=== PATIENT | male | born 1955 | race Caucasian/White ===

== ENCOUNTER 2023-08-22 04:12 | Inpatient (IN) | payer MEDICARE, SELFPAY ==
[2023-08-22] VITALS (21 sets, daily range): BP systolic 107–193; BP diastolic 58–116; PULSE 78–136; RESP 15–40; TEMP 36.3–38.3; O2SAT 94–97
--- NOTE | ~2023-08-22 | CT_ITS ---
EXAMINATION: CTA chest PE protocol DATE: 08/23/2023 14:49 INDICATION: Respiratory distress TECHNIQUE: Computed tomography angiography (CTA) of the chest was performed with 100 mL Omnipaque-350 intravenous contrast timed to evaluate the pulmonary arteries. Coronal maximum intensity projection 3D-reconstructions were created by the technologist. The dose-length product (DLP) was 1074.49 mGy-cm . Automated exposure control and iterative reconstruction technique were employed. COMPARISON: None. FINDINGS: The pulmonary arteries are well-opacified. No pulmonary embolism is identified. There is mi ld dependent atelectasis of the lungs. No pleural effusion or pneumothorax. Cardiomegaly is noted. Th ere are no pathologically enlarged thoracic lymph nodes. There is severe thoracic spondylosis. There are compression fractures of T9, T11, and L1. There is mild distention of the gallbladder. There is m ild peripancreatic lymphadenopathy, likely reactive. There are bilateral shoulder arthroplasties. IMPRESSION: 1. No pulmonary embolus identified. 2. Mild dependent atelectasis. 3. Cardiomegaly. Reviewed, dictated and finalized at location L. PROGRAM COMPLIANCE SPECIALIST
--- NOTE | ~2023-08-22 | CT_ITS ---
CT of the Abdomen and Pelvis: Indication: Abdominal pain Technique: 2.5 mm axial scans were obtained through the abdomen and pelvis following intravenous adm inistration of 100 cc of Omnipaque 350. Dose reduction technique was used on this scan by utilizing a utomated exposure control and iterative reconstruction technique. The dose-length product (DLP) was 1 339.00 mGy-cm. Findings: Scans through the lung bases are unremarkable. The liver, spleen, pancreas, adrenals and kidneys are within normal limits. Gallbladder is distended but otherwise unremarkable. No evidence of aortic aneurysm. No lymphadenopathy. No bowel obstruction or bowel wall thickening. There is no evidence to suggest acute appendicitis. Images through the pelvis were performed. Urinary bladder unremarkable. Prostate gland and seminal ve sicles are unremarkable. No ascites. There are chronic appearing compression deformities of T8, T9, T 11, and L1, with advanced degenerative spondylosis in the thoracolumbar spine. Impression: Distended gallbladder without other CT abnormality. If there is concern for biliary/gallbladder patho logy, then consider ultrasound for further evaluation. Compression fractures and degenerative spondylitic changes in the thoracal lumbar spine, as detailed above. Reviewed, dictated and finalized at [facility]. E OILER Impression: Distended gallbladder without other CT abnormality. If there is concern for madiha iary/gallbladder pathology, then consider ultrasound for further evaluation. Compression fractures and degenerative spondylitic changes in the thoracal lumb ar spine, as detailed above.
--- NOTE | ~2023-08-22 | XR_ITS ---
EXAMINATION: XR chest 1V portable Exam Date/Time: 08/22/2023 22:40 PREFITTER DOORS HISTORY: rapid response call/SOB Comparison: Same date at 5:00 AM. RESULT: Lines, tubes, and devices: A suture or wire is present over the right axilla, of uncertain etiology but stable. Bilateral partially visualized shoulder arthroplasties. Lungs and pleura: Lordotic positioning. Low volumes with crowding. Motion artifact. Linear atelectas is in the right lower lung. No focal consolidation, effusion, or pneumothorax Cardiomediastinal silhouette: Stable. Other: No acute osseous or upper abdominal finding. IMPRESSION: No acute cardiopulmonary process. Reviewed, dictated and finalized at location K. ITTER DOORS
--- NOTE | ~2023-08-22 | XR_ITS ---
Portable chest x-ray Comparison: 08/22/2023 Clinical History: Decreased lung sounds Findings: Lungs are clear, without focal consolidation or pleural effusion. Cardiomediastinal silho uette is stable. Bilateral shoulder arthroplasties are again present. Impression: Clear lungs. Reviewed, dictated and finalized at location . OND EXPERT Impression: Clear lungs.
--- NOTE | ~2023-08-22 | MR_ITS ---
EXAMINATION: MR MRCP wo con/w 3D wo ind pp DATE: 08/24/2023 12:02 INDICATION: Elevated liver function tests and dilated common bile duct TECHNIQUE: Magnetic resonance imaging (MRI) of the abdomen was performed without intravenous contrast . Sequences included coronal T2-weighted SS-FSE, coronal T2-weighted FS SS-FSE, coronal T2-weighted F S FIESTA, axial T2-weighted FS FIESTA, axial T2-weighted FIESTA, sagittal T2-weighted SS-FSE, axial T 1-weighted dual-echo FSPGR, axial T2-weighted SS-FSE, axial T1-weighted LAVA, axial T2-weighted STIR FSE. Thick-slab T2-weighted FRFSE-XL images were obtained for magnetic resonance cholangiopancreatogr aphy (MRCP). Rotating maximum intensity projection 3-D reconstructions of the volumetric data were cr eated by the technologist. COMPARISON: CT dated 08/23/2023 and 08/22/2023 FINDINGS: ABDOMEN MRI: Cardiomegaly. No pericardial or pleural effusion. Diffuse hepatic steatosis. Percutaneous cholecystos roxie tube via transhepatic approach with distal tip in the fundus of the gallbladder. There are sever al subcentimeter low signal intensity gallstones in the dependent aspect of the gallbladder. Minimal pericholecystic fluid along the gallbladder fossa without [place] gallbladder wall thickening or perich olecystic inflammatory stranding. Spleen, pancreas, bilateral adrenal glands and kidneys are normal. There are few diverticula along the sigmoid colon without adjacent inflammatory stranding to suggest diverticulitis. Bowels are otherwise unremarkable with no obstruction. Bladder is normal. No patholog ically enlarged abdominal or pelvic lymphadenopathy. Mild S-shaped scoliosis of the thoracolumbar spi ne with moderate to severe spondylosis. This includes multilevel disc bulges resulting in central can al stenosis which appears severe at T10-T11 and moderate to severe at T11-T12 and L3-L4. A few chroni c compression fractures in the lower thoracic and upper lumbar spine with normal associated marrow si gnal. T1 hyperintense hemangiomas at T7, T9 and T12. There is approximately 1 cm T1 hypointense, T2 h yperintense lesion in the L1 vertebral body with subtle associated sclerosis and CT ABDOMEN MRCP: MRCP images are suboptimal due to motion. Subsequently better visualization on the sagittal and coron al T2-weighted SSFSE images. These demonstrate interval resolution of prior dilation of the common bi le duct which had measured up to 9 mm, currently measuring 5 mm. There is a 5 mm low signal intensity gallstone at the distalmost common bile duct on series 8, image 13. No intrahepatic third ductal dil ation. No dilation of the main pancreatic duct. IMPRESSION: 1. Cholelithiasis including a 5 mm stone at the distalmost common bile duct. The prior intra-axial he patic biliary ductal dilation has resolved likely due to the interval placement of a percutaneous cho lecystostomy tube which at the fundus of the gallbladder which aside from a minimal amount of pericho lecystic fluid appears normal. 2. Indeterminate 1 cm T1 hypointense T2 hyperintense lesion with subtle associated sclerosis on prior CT at the L1 vertebral body. There is no provided history of known prior malignancy but would consid er correlation with bone scan and PSA levels. 3. Diffuse hepatic steatosis. Reviewed, dictated and finalized at location A. ITIAN IMPRESSION: 1. Cholelithiasis including a 5 mm stone at the distalmost common bile duct. Th e prior intra-axial hepatic biliary ductal dilation has resolved likely due to the interval placement of a percutaneous cholecystostomy tube which at the fund us of the gallbladder which aside from a minimal amount of pericholecystic flui d appears normal. 2. Indeterminate 1 cm T1 hypointense T2 hyperintense lesion with subtle associa gopi sclerosis on prior CT at the L1 jimy
--- NOTE | ~2023-08-22 | XR_ITS ---
Portable chest x-ray Comparison: None Clinical History: Weakness Findings: Possible minimal central congestive change. No consolidation or pleural effusion. Cardiom ediastinal silhouette is prominent, possibly due to AP technique. Bilateral shoulder arthroplasties a re noted. Impression: Possible minimal central congestive change. Reviewed, dictated and finalized at [facility]. CHOPPER Impression: Possible minimal central congestive change.
--- NOTE | ~2023-08-22 | US_ITS ---
EXAMINATION: US right upper quadrant DATE: 08/22/2023 11:40 INDICATION: Right upper quadrant pain TECHNIQUE: Multiple grayscale and Doppler ultrasound images of the abdomen were obtained. COMPARISON: CT from today FINDINGS: Bowel gas obscures visualization of the pancreas. The visualized portions of the pancreas a re unremarkable. The liver is normal with normal echogenicity and echotexture. No surface nodularity. Normal hepatopetal flow in the main portal vein. Stones are present in the gallbladder which is mild ly distended. No gallbladder wall thickening or pericholecystic fluid are identified. The dilated com mon bile duct measures 9 mm. There was no sonographic Hopson sign. IMPRESSION: 1. Cholelithiasis and gallbladder distention without additional findings of cholecystitis. Findings a re equivocal for cholecystitis. Consider nuclear hepatobiliary scan. 2. Dilated common bile duct of unclear etiology. Reviewed, dictated and finalized at location B. RMATICS ANALYST IMPRESSION: 1. Cholelithiasis and gallbladder distention without additional findings of cho lecystitis. Findings are equivocal for cholecystitis. Consider nuclear hepatobi liary scan. 2. Dilated common bile duct of unclear etiology.
--- NOTE | ~2023-08-22 | US_ITS ---
EXAMINATION: US perc cholecystostomy w imag DATE: 08/23/2023 16:47 INDICATION: Acute cholecystitis TECHNIQUE: The procedure including the risks and benefits was discussed with the patient. Risks discu ssed included bleeding including hemorrhage and bile peritonitis. Oral and written consent were obtai pablo. The patient was confirmed to be receiving appropriate antibiotic coverage. The skin overlying t he liver and gallbladder was prepped and draped in usual sterile fashion. Anesthetic was administere d with 1% lidocaine subcutaneously. Conscious sedation was provided by the anesthesiology service. An 8.5 Fr catheter was inserted through liver parenchyma into the gallbladder by trocar technique. Th e metal stiffener and trocar needle were removed, and the pigtail tip was locked. Bile was aspirated and sent for culture. The catheter was stitched to the skin with suture. There were no immediate comp lications. FINDINGS: The gallbladder is dilated with wall thickening and stones and sludge, consistent with acut e cholecystitis. Ultrasound images demonstrate the catheter within the gallbladder. 60 mL dark blacki sh brown bile was aspirated and sent to the lab for Gram stain and cultures. An additional 100 mL madiha e was aspirated into the gravity drainage bag. Images show the formed pigtail catheter tip in the gal lbladder with the gallbladder essentially decompressed on the final image. IMPRESSION: 1. Successful ultrasound-guided cholecystostomy tube placement. 2. 60 mL bile was sent for aerobic, anaerobic, and fungal cultures. 3. The catheter will be managed by Dr. Bernal. A catheter cholangiogram may be performed not less than 48 hours after tube placement if clinically indicated to assess cystic duct patency. If cholecystec roxie is not eventually performed and the infectious episode has resolved, the tube may be removed ove r a guidewire, preferably not less than 3 weeks after placement to allow time for a mature catheter t ract to form to prevent bile leakage and peritonitis. Reviewed, dictated and finalized at location A. OPERATOR IMPRESSION: 1. Successful ultrasound-guided cholecystostomy tube placement. 2. 60 mL bile was sent for aerobic, anaerobic, and fungal cultures. 3. The catheter will be managed by Dr. Bernal. A catheter cholangiogram may be p erformed not less than 48 hours after tube placement if clinically indicated to assess cystic duct patency. If cholecystectomy is not eventually performed an d the infectious episode has resolved, the tube may be removed over a guidewire , preferably not less than 3 weeks after placement to allow time for a mature c atheter tract to form to prevent bile leakage and peritonitis.
[2023-08-22] MEDS: BELLADONNA ALK/PHENOB ELIX 10 ML, MAG HYDROX/ALUMINUM HYD/SIMETH 30 ML, LIDOCAINE HCL 2... PO (04:54)
[2023-08-22] MEDS: FAMOTIDINE 20 MG/2 ML VIAL IV PUSH ×2 (04:54→20:34)
--- NOTE | 2023-08-22 04:55 | ED.ABDPAIN ---
HPI - Abdominal Pain General Chief Complaint: Abdominal Pain Stated Complaint: severe indigestion , epigastric/abd pain Time Seen by Provider: 08/22/23 04:47 History of Present Illness HPI narrative: Pt presents to the ER with his with c/o diffuse abdominal pain. He has had nausea. His said that he ate chili prior to eating getting abdominal pain. He has had these symptoms in the past and states that the tests are normally normal. He has not had an upper endoscopy. Related Data Home Medications Medication Instructions Recorded Confirmed atorvastatin 40 mg tablet 40 mg PO DAILY 08/22/23 08/22/23 fluticasone fur. 200 mcg-umeclid 1 inh inhalation DAILY 08/22/23 08/22/23 62.5 mcg-vilant 25 mcg inhalat.powder (Trelegy Ellipta) gabapentin 600 mg tablet 600 mg PO TID 08/22/23 08/22/23 meloxicam 15 mg tablet 15 mg PO DAILY 08/22/23 08/22/23 morphine 15 mg tablet,extended 15 mg PO QID PRN chronic back pain 08/22/23 08/22/23 release pantoprazole 40 mg tablet,delayed 40 mg PO DAILY 08/22/23 08/22/23 release potassium chloride 10 mEq 10 meq PO TID 08/22/23 08/22/23 tablet,extended release rizatriptan 10 mg tablet 10 mg PO BID PRN Migraine Headache 08/22/23 08/22/23 telmisartan 40 mg tablet 40 mg PO DAILY 08/22/23 08/22/23 Allergies Allergy/AdvReac Type Severity Reaction Status Date / Time codeine Allergy Other Verified 08/22/23 15:25 Latex, Natural Rubber Allergy Rash Verified 08/22/23 15:25 neomycin Allergy Rash Verified 08/22/23 15:25 Review of Systems Review of Systems: Review of systems negative except what is documented in the HPI [facility] Past Medical History Medical History COPD (chronic obstructive pulmonary disease) History of colon cancer S/p partial colectomy with no chemotherapy Hyperlipidemia Hypertension Osteoarthritis Rheumatoid arthritis Scrotal abscess s/p I&D at [facility] June 29, 2023 Surgical History Surgical History History of incision and drainage I&D scrotal abscess 06/29/23 with subsequent wound vac therapy and wound care History of partial colectomy laparoscopic Social History Social History Smoking status: Never smoker Alcohol intake: never Substance use: never Substance use type: does not use Lack of Transportation: No Lack of Food: Never True Current Housing: I Have Housing Concerned About Future Housing: No Difficulty Paying Gas/Electric Bills: No Difficulty Paying for Meds: No Currently Unemployed: No Education: Don't Know Difficulty w/ Childcare or Family Care: No Spiritual care concerns: No Exam Narrative: GENERAL: Well-appearing, well-nourished, uncomfortable HEAD: Normocephalic, atraumatic. EYES: PERRLA and EOMI. ENT: Nares clear, no rhinorrhea or epistaxis. Mucous membranes moist. NECK: Supple. CHEST: Clear to auscultation. No respiratory distress. HEART: Regular rate and rhythm. ABDOMEN: Soft, nontender, nondistended. EXTREMITIES: Normal range of motion. No edema. SKIN: Warm, dry, no rash. NEURO: No focal deficits. Alert and oriented x3. PSYCH: Normal mood and affect. Course Course Emergency Course: DDx includes gastritis, acute francisco, sbo Vital Signs Vital signs: Vital Signs Temperature 97.3 F L 08/22/23 04:19 Pulse Rate 114 H 08/22/23 04:19 Respiratory Rate 26 H 08/22/23 04:19 Blood Pressure 167/85 H 08/22/23 04:19 Pulse Oximetry 95 08/22/23 04:19 Oxygen Delivery Room Air 08/22/23 04:19 Temperature 97.7 F 08/23/23 08:00 Pulse Rate 102 H 08/23/23 10:18 Respiratory Rate 22 H 08/23/23 10:18 Blood Pressure 116/59 L 08/23/23 08:00 Pulse Oximetry 97 08/23/23 08:26 Oxygen Delivery BiPAP 08/23/23 08:26 Oxygen Flow Rate 4 08/22/23 23:00 Fraction of Inspired Oxygen 35 08/23/23 08:
[2023-08-22 05:18] LABS: Basophils Percent Auto 0.4 % (0.2-1.2); Eosinophils Percent Auto 0.3 % (0-4.4); Hematocrit 46.3 % (42.0-52.0); Hemoglobin 15.6 g/dL (14.0-18.0); Immature Granulocyte Absolute 0.03 K/mm3 (0.00-0.031); Immature Granulocyte Percent A 0.4 % (0-0.5); Lymphocytes Absolute Auto 0.45 K/mm3 (0.9-3.2); Lymphocytes Percent Auto 6.6 % (18.3-44.2); Mean Corpuscular HGB Conc 33.7 g/dl (32-36); Mean Corpuscular Hemoglobin 30.6 pg (26-34); Mean Corpuscular Volume 90.8 fl (80-100); Mean Platelet Volume 11.2 fl (7.4-10.4); Monocytes Absolute Auto 0.1 K/mm3 (0.1-0.6); Monocytes Percent Auto 1.3 % (2.6-8.5); Neutrophils Absolute Auto 6.2 K/mm3 (1.3-6.7); Platelet Count Result 138 k/mm3 (150-375); Red Cell Distribution Width 13.2 % (11.5-14.5); White Blood Count 6.9 K/mm3 (4.5-10.0)
[2023-08-22 05:31] LABS: Lactic Acid Reflex 2.5 mmol/L (0.7-2.0)
[2023-08-22] MEDS: diphenhydrAMINE HCl INJ 50 MG/ML VIAL 25 MG IV PUSH (06:24)
[2023-08-22] MEDS: MORPHINE SULFATE (*CRX) 2 MG/ML INJ 4 MG IV PUSH (06:24)
[2023-08-22 06:46] LABS: Alanine Aminotransferase 179 U/L (6-50); Alkaline Phosphatase 125 U/L (38-126); Anion Gap 11 mmol/L (8-16); Aspartate Amino Transferase 378 U/L (17-59); Bilirubin,Total 4.3 mg/dL (0.2-1.3); Blood Urea Nitrogen 18 mg/dL (9-20); Calcium 9.1 mg/dL (8.4-10.2); Carbon Dioxide 23 mmol/L (22-30); Chloride 105 mmol/L (98-107); Estimated CRCL calculation 75 ml/min; Estimated Glomerular Filt Rate > 60; Glucose 127 mg/dL (65-110); Lipase 121 U/L (23-300); Potassium 2.9 mmol/L (3.4-5.0); Sodium 139 mmol/L (137-145)
[2023-08-22 07:01] LABS: Troponin I < 0.012 ng/mL (0.000-0.034)
[2023-08-22] MEDS: PIPERACILLIN/TAZ 4.5G/NS 100ML 4.5 GM/100 ML BAG IVPB (08:07)
[2023-08-22 08:11] LABS: Reflex Lactic Acid Yes or No Add Lactic
[2023-08-22 08:14] LABS: Troponin I < 0.012 ng/mL (0.000-0.034)
[2023-08-22 08:32] LABS: Lactic Acid 2.6 mmol/L (0.7-2.0)
[2023-08-22] MEDS: SODIUM CHLORIDE 0.9% IV 1,000 ML 125 ML IV CONT (09:50)
--- NOTE | 2023-08-22 10:12 | PM.IMHP ---
H&P: HPI History of Present Illness Date/Time: 08/22/23 10:12 Chief Complaint: Abdomen pain Narrative: 67 years old gentleman with hypertension, hyperlipidemia, rheumatoid arthritis on methotrexate, present ED with a chief complaint diffuse abdominal pain. Patient started have abdomen yesterday, associated with nausea denies vomiting. Patient denies chills, denies fever. Patient also denies chest pain, shortness a of breath, dysuria, melena, red blood per rectum. Patient came to ED for evaluation. in the ED, was found have tachycardia tachypnea, elevated liver enzymes, CT abdomen reveals distended gallbladder, there is no concern of biliary or gallbladder pathology. Patient received Zosyn in the ED, ER physician also consulted general surgeon, abdomen ultrasound pending. We admit patient for further evaluation and management Review of Systems Review of Systems: RoS negative except above PMFSH Past Medical History Medical History COPD (chronic obstructive pulmonary disease) History of colon cancer S/p partial colectomy with no chemotherapy Hyperlipidemia Hypertension Osteoarthritis Rheumatoid arthritis Scrotal abscess s/p I&D at [facility] June 29, 2023 Surgical History Surgical History History of incision and drainage I&D scrotal abscess 06/29/23 with subsequent wound vac therapy and wound care History of partial colectomy laparoscopic Social History Social History Smoking status: Former smoker Meds Home Medications and Allergies Home Medications Medication Instructions Recorded Confirmed Type atorvastatin 40 mg tablet mg 08/22/23 History hydrochlorothiazide 25 mg tablet mg 08/22/23 History meloxicam 15 mg tablet mg 08/22/23 History methotrexate sodium 2.5 mg tablet mg 08/22/23 History morphine 15 mg tablet,extended mg PO 08/22/23 History release pantoprazole 40 mg tablet,delayed mg PO 08/22/23 History release potassium chloride 10 mEq meq PO 08/22/23 History tablet,extended release rizatriptan 10 mg tablet mg 08/22/23 History telmisartan 40 mg tablet mg 08/22/23 History Allergies Allergy/AdvReac Type Severity Reaction Status Date / Time codeine Allergy Other Verified 08/22/23 04:48 Latex, Natural Rubber Allergy Rash Verified 08/22/23 04:48 neomycin Allergy Rash Verified 08/22/23 04:48 Vital Signs Vital Signs - 24 hr 08/22/23 04:19 08/22/23 04:29 08/22/23 04:34 Temperature 97.3 F L Pulse Rate 114 H 117 H Respiratory Rate 26 H 26 H 25 H Blood Pressure 167/85 H Pulse Oximetry 95 Oxygen Delivery Room Air 08/22/23 04:46 08/22/23 05:00 08/22/23 05:36 Temperature Pulse Rate 113 H 115 H 114 H Respiratory Rate 22 H 24 H Blood Pressure Pulse Oximetry 97 Oxygen Delivery 08/22/23 06:50 08/22/23 07:10 08/22/23 07:35 Temperature Pulse Rate 108 H 99 107 H Respiratory Rate 22 H 18 Blood Pressure Pulse Oximetry Oxygen Delivery 08/22/23 07:45 08/22/23 08:15 08/22/23 08:43 Temperature Pulse Rate 108 H 109 H 106 H Respiratory Rate 23 H 19 20 Blood Pressure Pulse Oximetry Oxygen Delivery 08/22/23 08:45 08/22/23 09:00 08/22/23 09:40 Temperature Pulse Rate 109 H 118 H 113 H Respiratory Rate 20 15 19 Blood Pressure Pulse Oximetry Oxygen Delivery 08/22/23 09:45 Temperature Pulse Rate 110 H Respiratory Rate 19 Blood Pressure Pulse Oximetry Oxygen Delivery Exam Narrative: GENERAL: Pleasant, in no acute distress. Well-nourished. - EYES: EOMI. Anicteric. - HENT: Moist mucous membranes. - LUNGS: Clear to auscultation bilaterally, no wheezing, rhonchi, or rales. - CARDIOVASCULAR: Regular rate and rhythm. No murmur. No JVD. - ABDOMEN: Soft, right upper quadrant tender of and non-distende
--- NOTE | 2023-08-22 10:45 | PM.CNGS ---
Assessment and Plan Assessment and plan (1) Abnormal findings on diagnostic imaging of gallbladder: Code(s): R93.2 - Abnormal findings on diagnostic imaging of liver and biliary tract Status: Acute Assessment and Plan: CT abdomen and pelvis showed a distended gallbladder. No gallstones. He is complaining of epigastric abdominal pain and is tender in the RUQ and epigastric area. LFTs also elevated, but he also reports a history of such. Recommend to continue IV antibiotics and a RUQ US ordered to further evaluate the gallbladder. If this suggests acute cholecystitis, then we may need to consider percutaneous cholecystostomy tube placement. He has multiple co-morbidites and recent surgery/infection/hospitalization that has made the patient more weak, which all increases his risks for surgery. (2) Sepsis: Code(s): A41.9 - Sepsis, unspecified organism Status: Acute Assessment and Plan: Patient presents with elevated lactic acid, tachycardia, and tachypnea. CT abdomen/pelvis showed distended gallbladder. RUQ US ordered. If suggestive of acute cholecystitis, then may need to consider percutaneous cholecystostomy tube placement as mentioned above. Continue IV antibiotics and IV fluid resuscitation. (3) Elevated liver enzymes: Code(s): R74.8 - Abnormal levels of other serum enzymes Status: Acute Assessment and Plan: Unclear etiology. History of elevated liver enzymes during a hospitalization at [facility] in June. Multiple home medications were stopped at that time, including at least his HCTZ, methotrexate, and possibly a statin. Could also be related to his gallbladder. Will await RUQ US results. Likely not a candidate for MRCP due to previous orthopedic surgery. Repeat labs. (4) Abdominal pain: Qualifiers: Abdominal location: epigastric Qualified Code(s): R10.13 - Epigastric pain Code(s): R10.9 - Unspecified abdominal pain Status: Acute Assessment and Plan: Abdominal pain could be related to the gallbladder. Proceed with further workup as mentioned above. Could also consider GI source if US negative. Troponin neg x 2. (5) COPD (chronic obstructive pulmonary disease): Code(s): J44.9 - Chronic obstructive pulmonary disease, unspecified Status: Chronic (6) Rheumatoid arthritis: Code(s): M06.9 - Rheumatoid arthritis, unspecified Status: Chronic Assessment and Plan: Methotrexate stopped in June. No acute complaints. (7) Hypertension: Code(s): I10 - Essential (primary) hypertension Status: Chronic (8) Obesity, morbid, BMI 40.0-49.9: Code(s): E66.01 - Morbid (severe) obesity due to excess calories Status: Acute Plan I have discussed the patient's case and plan of care with Dr. Bernal. Thank you for allowing us to see the patient in consultation and we will continue to follow along with you. History of Present Illness Consult details Consult date: 08/22/23 Reason for consult: other (CT scan showing distended gallbladder) Requesting physician: Parisa Fiore MD Narrative: This is a 67-year-old obese man with a history of multiple medical problems, who was brought into the ER by his for epigastric abdominal pain. He reports having previous similar pain about 2 months ago that was associated with diarrhea and vomiting. Last night, he ate white chicken chili for dinner and shortly after eating developed what he initially thought was indigestion. He had epigastric pain that progressively worsened through the evening. His pain radiated to his mid chest and mid back. His pain also went across his entire upper abdomen underneath his ribs. He reports associated nausea and vomiting. His pain became more severe and brought him into the ER for further evaluation. Labs showed a white blood cell count of 6900 with a left shift. Labs also significant for lactic acid 2.5, potassium 2.9, total bilirubin 4
--- NOTE | 2023-08-22 10:55 | ECG_ITS ---
Measurements Intervals [place] Rate: 126 P: 38 ND: 176 QRS: 83 QRSD: 94 T: 57 QT: 388 QTc: 562 Interpretive Statements SINUS TACHYCARDIA NONSPECIFIC T-WAVE ABNORMALITY- LAT/HIGH LAT LEADS BASELINE ARTIFACT- II, III, AVL, AVF ABNORMAL ECG NO PREVIOUS ECG AVAILABLE FOR COMPARISON Electronically Signed On 08-23-2023 6:35:49 CAMPUS AIDE by Eusebio Stewart D.O.
--- NOTE | 2023-08-22 12:42 | PC.NURSE ---
Dr. Hatch approached this RN and stated the pt did not want to wait for results of ultrasound and wanted to leave AMA. Since this, the pts has approached the nurses station several times confused on what they are waiting for. The charge lpn went into the pts room and the pts stated Dr. Hatch asked if they wanted to go home and they said yes. Per the pts , this was not them saying they wanted to leave AMA. Per the pts they are waiting for Louisa to give them results from the ultrasound and help guide them on what is going to happen next.
[2023-08-22] MEDS: RIZATRIPTAN BENZOATE 10 MG ODT PO (14:10)
[2023-08-22] MEDS: POTASSIUM CHLORIDE INJ 40 MEQ in SODIUM CHLORIDE 0.9% IV 500 ML 130 MEQ IVPB (15:00)
--- NOTE | 2023-08-22 15:25 | ADMGEN ---
This patient, Nash Jara, was admitted to 3 [facility] Surg Room 312-01. Patient/family oriented to hospital policies and general routines including ID bracelet, bed and alarms, visiting hours, pain management, procedures, bathroom and other care routines, personal items, smoking policy, room service/diet, and visiting hours. Information on how to activate the Rapid Response Team has been discussed. Patient/Family are encouraged to report perceived risks to care and to ask questions if they do not understand what they are told or what they should do.
[2023-08-22] MEDS: PIPERACILLN/TAZ 3.375GM/NS50ML 3.375 GM/50 ML BAG IVPB (17:17)
[2023-08-22 18:48] LABS: Hepatitis B Surface Antigen Negative (Negative)
[2023-08-22 18:54] LABS: HAV RESULT Negative (Negative); Hepatitis B Core IgM Result Negative (Negative)
[2023-08-22 19:05] LABS: Hepatitis C Virus Antibody Negative (Negative)
[2023-08-22] MEDS: HYDROmorphone HCL INJ (*CRX) 1 MG/ML SYR IV PUSH (20:34)
[2023-08-22 22:40] LABS: Alveolar/Arterial O2 Gradient 143.3 mmHg; Fractional Inspired Oxygen 36 %; HCO3 ABG 19.9 mEq/l (22.0-26.0); Oxygen Content ABG 20.9 %vol (16.0-22.0); Oxygen Saturation ABG 97.4 % (95.0-100.0); Oxyhemoglobin 95.8 % THb (90.0-100.0); PCO2 ABG 24.9 mmHg (35.0-45.0); PO2 ABG 84.5 mmHg (80.0-100.0); PO2 FiO2 Ratio Arterial Blood 2.35 %; Total Hemoglobin 15.5 g/dL (12.0-18.0)
[2023-08-22 22:44] LABS: Device NASAL CANNULA; Modified Allen's Test Pass; Site Drawn RIGHT RADIAL; pH ABG 7.521 (7.350-7.450)
[2023-08-22 22:52] LABS: Hematocrit 44.2 % (42.0-52.0); Hemoglobin 14.7 g/dL (14.0-18.0); Immature Platelet Fraction Pct 4.8 % (0.9-11.2); Mean Corpuscular HGB Conc 33.3 g/dl (32-36); Mean Corpuscular Hemoglobin 30.4 pg (26-34); Mean Corpuscular Volume 91.3 fl (80-100); Mean Platelet Volume 10.4 fl (7.4-10.4); Platelet Count Result 113 k/mm3 (150-375); Red Blood Count 4.84 M/mm3 (4.6-6.20); Red Cell Distribution Width 13.6 % (11.5-14.5); White Blood Count 5.3 K/mm3 (4.5-10.0)
[2023-08-22] MEDS: HALOPERIDOL LACTATE 5 MG/ML VIAL IM (22:53)
[2023-08-22 23:05] LABS: Alanine Aminotransferase 219 U/L (6-50); Albumin Level 4.2 g/dL (3.5-5.1); Alkaline Phosphatase 146 U/L (38-126); Anion Gap 14 mmol/L (8-16); Aspartate Amino Transferase 307 U/L (17-59); Bilirubin,Total 6.5 mg/dL (0.2-1.3); Blood Urea Nitrogen 21 mg/dL (9-20); Calcium 9.1 mg/dL (8.4-10.2); Carbon Dioxide 18 mmol/L (22-30); Chloride 106 mmol/L (98-107); Estimated CRCL calculation 75 ml/min; Estimated Glomerular Filt Rate > 60; Glucose 105 mg/dL (65-110); Lactic Acid Reflex 3.1 mmol/L (0.7-2.0); Magnesium 1.8 mg/dL (1.6-2.3); Potassium 3.5 mmol/L (3.4-5.0); Sodium 138 mmol/L (137-145)
--- NOTE | 2023-08-22 23:10 | P.PNCROSS_ITS ---
Event Note Event Note Event Note: Rapid response was called to the patient's room after patient became unresponsi ve at the time of my arrival patient is awake in moderate respiratory distress his nasal cannula is on 5 L patient is tachypneic. Objective: Patient agitated, tachypneic. Subjective: Unable to speaking full sentences, delirious General: Patient is sitting in bed in moderate respiratory distress, tachypneic, ill-appearing. HEENT: Atraumatic normocephalic no JVD no lymphadenopathies PERRLA EOM intact Respiratory: Diminished throughout no crackles no wheezes: Cardiovascular: Tachycardic S1-S2 heard Abdomen: Obese, no hepatosplenomegaly. Extremities: No edema Central nervous system: Patient moving actively and purposely or for limbs face is symmetric Skin: Scrotal wound nearly closed Assessment and plan: 1.Sepsis:Early goal directed therapy ongoing 2:Acute respiratory failure:Started on BiPAP 3:Lactic acidosis: Receiving fluids, repeat as needed. 4:Cholecystitis:On broad spectrum antibiotics.
[2023-08-22 23:15] LABS: Troponin I 0.018 ng/mL (0.000-0.034)
[2023-08-22] MEDS: MORPHINE SULFATE (*CRX) 2 MG/ML INJ 1 MG IV PUSH (23:41)
[2023-08-22] MEDS: LORazepam INJ (*CRX) 2 MG/ML VIAL 1 MG IV PUSH (23:42)
[2023-08-22] MEDS: MORPHINE SULFATE (*CRX) 2 MG/ML INJ IV PUSH (23:56)
[2023-08-23] VITALS (30 sets, daily range): BP systolic 107–190; BP diastolic 59–92; PULSE 100–148; RESP 16–36; TEMP 36.5–39.9; O2SAT 94–99
[2023-08-23] MEDS: PIPERACILLN/TAZ 3.375GM/NS50ML 3.375 GM/50 ML BAG IVPB ×4 (00:05→18:46)
[2023-08-23 00:33] LABS: Glucose Point of Care 109 mg/dl (65-105)
--- NOTE | 2023-08-23 01:13 | PC.NURSE ---
During the night a DEBIT AGENT was call on our patient. A team responded assessed and treated the patients conditions. During the DEBIT AGENT orders were recieved by MD to transfer patient to IMU. Report was given to IMU RN and patients was notified and updated with patients condition changes. Patient was transport to IMU.
[2023-08-23] MEDS: ACETAMINOPHEN 650 MG SUPPOSITORY RECTAL (01:15)
--- NOTE | 2023-08-23 01:34 | PC.NURSE ---
0045 patient arrived to room 200. Oriented to person only. HR 150's , temp 103.8
[2023-08-23 01:47] LABS: Reflex Lactic Acid Yes or No Add Lactic
--- NOTE | 2023-08-23 02:08 | PC.NURSE ---
0100 Dr Palacios updated on status and informed of temp. Orders received. 0115 Remains oriented to self. Attempting to get out of bed repeatedly. Charge nurse informed and patient moved to room 204
[2023-08-23 02:49] LABS: Lactic Acid 4.9 mmol/L (0.7-2.0)
[2023-08-23] MEDS: VANCOMYCIN 1,250 MG/NS 250 ML 1,250 MG/250 ML BAG 166.67 MG IVPB ×2 (03:50→05:30)
[2023-08-23 05:40] LABS: Hematocrit 41.5 % (42.0-52.0); Hemoglobin 13.4 g/dL (14.0-18.0); Mean Corpuscular HGB Conc 32.3 g/dl (32-36); Mean Corpuscular Hemoglobin 30.5 pg (26-34); Mean Corpuscular Volume 94.3 fl (80-100); Mean Platelet Volume 11.2 fl (7.4-10.4); Platelet Count Result 99 k/mm3 (150-375); Red Cell Distribution Width 13.7 % (11.5-14.5); White Blood Count 16.9 K/mm3 (4.5-10.0)
[2023-08-23 06:02] LABS: Alanine Aminotransferase 176 U/L (6-50); Albumin Level 3.4 g/dL (3.5-5.1); Alkaline Phosphatase 125 U/L (38-126); Anion Gap 13 mmol/L (8-16); Aspartate Amino Transferase 227 U/L (17-59); Bilirubin Direct 3.1 mg/dL (0-0.3); Bilirubin,Total 5.9 mg/dL (0.2-1.3); Blood Urea Nitrogen 26 mg/dL (9-20); Calcium 8.4 mg/dL (8.4-10.2); Carbon Dioxide 21 mmol/L (22-30); Chloride 106 mmol/L (98-107); Estimated CRCL calculation 54 ml/min; Estimated Glomerular Filt Rate 51; Glucose 88 mg/dL (65-110); Potassium 2.9 mmol/L (3.4-5.0); Sodium 140 mmol/L (137-145)
[2023-08-23 06:32] LABS: Band Neutrophils Percent 37 % (0-6); Lymphocytes Absolute Manual 0.33 K/mm3 (1.1-4.5); Lymphocytes Percent Manual 2 % (18-44); Monocytes Percent Manual 3 % (3-9); Neutrophils Absolute Manual 16.05 K/mm3 (1.3-6.7); Neutrophils Percent Manual 58 % (46-73); Platelet Estimate Decreased (Adequate); Total Cells Counted 100
[2023-08-23 06:33] LABS: Schistocytes None Seen (NORMAL)
[2023-08-23] MEDS: SODIUM CHLORIDE 0.9% IV 1,000 ML 125 ML IV CONT ×2 (08:06→18:45)
[2023-08-23] MEDS: FAMOTIDINE 20 MG/2 ML VIAL IV PUSH ×2 (08:10→20:28)
[2023-08-23 09:34] LABS: INR 1.5; Prothrombin Time 18.4 Seconds (11.1-14.7)
[2023-08-23 09:35] LABS: Partial Thromboplastin Time 41.2 SECONDS (22.3-36.8)
--- NOTE | 2023-08-23 10:05 | PM.IMPN ---
Progress Note: A&P Assessment and Plan (1) Acute cholecystitis: Code(s): K81.0 - Acute cholecystitis Status: Acute (2) Elevated liver enzymes: Code(s): R74.8 - Abnormal levels of other serum enzymes Status: Acute (3) Sepsis: Code(s): A41.9 - Sepsis, unspecified organism Status: Acute (4) Acute respiratory failure with hypoxemia: Code(s): J96.01 - Acute respiratory failure with hypoxia Status: Acute (5) COPD (chronic obstructive pulmonary disease): Code(s): J44.9 - Chronic obstructive pulmonary disease, unspecified Status: Chronic Plan Acute cholecystitis Patient has sudden-onset abdominal pain, CT reveals distended gallbladder Elevated liver enzymes, no gallstone is identified on CT scan Abnormal ultrasound is pending Optimize pain management Anti emetic p.r.n. Keep patient p.o. Consult general surgeon for evaluation and treatment Sepsis Patient has tachycardia tachypnea, patient is immunocompromised, patient on methotrexate Receive Zosyn in the ED Continue Zosyn IV Four blood culture urinalysis Fluid resuscitation Hypertension Hold oral medication given p.o., start hydralazine IV as needed with parameters Acute respiratory failure Possible due to COPD exacerbation CT of chest rule out PE Start O2 therapy to keep pulse ox above 92 Start DuoNeb scheduled, a paternal better as needed Anxiety Start Xanax p.o. as needed Hold rest home medications during NPO Subjective Date/time seen: 08/23/23 10:05 Interval history: I saw exam patient today, patient has short of breath in the morning, denies chest pain, abdomen pain is better controlled, Exam Narrative: GENERAL: Pleasant, in no acute distress. Well-nourished. - EYES: EOMI. Anicteric. - HENT: Moist mucous membranes. - LUNGS: Clear to auscultation bilaterally, no wheezing, rhonchi, or rales. - CARDIOVASCULAR: Regular rate and rhythm. No murmur. No JVD. - ABDOMEN: Soft, right upper quadrant tender of and non-distended. No palpable masses. - EXTREMITIES: No edema. Peripheral pulses 2+. Non-tender. - NEUROLOGIC: No focal neurological deficits. CN II-XII grossly intact. - PSYCHIATRIC: Awake, Alert and oriented x 3. Appropriate mood and affect. - SKIN: No rashes or lesions. Warm. - LYMPH: No cervical lymphadenopathy. Objective Data Vital Signs Vital Signs: Vital Signs - 24 hr 08/22/23 16:10 08/22/23 17:03 08/22/23 21:46 Temperature 100.5 F H Pulse Rate 78 78 91 Respiratory Rate 19 22 H Blood Pressure 142/116 H Pulse Oximetry 94 94 94 Oxygen Delivery Room Air Room Air Oxygen Flow Rate Fraction of Inspired Oxygen 08/22/23 23:16 08/23/23 00:01 08/23/23 00:56 Temperature 100.9 F H 99.0 F 103.2 F H Pulse Rate 136 H 148 H 140 H Respiratory Rate 40 H 34 H 36 H Blood Pressure 193/73 H 190/90 H 134/70 Pulse Oximetry 95 94 95 Oxygen Delivery Oxygen Flow Rate Fraction of Inspired Oxygen 08/22/23 23:00 08/23/23 01:15 08/23/23 00:00 Temperature 103.8 F H Pulse Rate 130 H 148 H Respiratory Rate 30 H Blood Pressure 107/58 L Pulse Oximetry 96 Oxygen Delivery Nasal Cannula Oxygen Flow Rate 4 Fraction of Inspired Oxygen 08/23/23 00:00 08/23/23 02:00 08/23/23 02:26 Temperature 99.9 F H Pulse Rate 148 H 127 H Respiratory Rate 36 H Blood Pressure Pulse Oximetry 95 Oxygen Delivery BiPAP Oxygen Flow Rate Fraction of Inspired Oxygen 50 08/23/23 03:01 08/23/23 04:00 08/23/23 04:00 Temperature 99.9 F H Pulse Rate 124 H 124 H Respiratory Rate 28 H Blood Pressure Pulse Oximetry 98 Oxygen Delivery BiPAP Oxygen Flow Rate Fraction of Inspired Oxygen 50 08/23/23 04:00 08/23/23 00:01 08/23/23 04:49 Temperature 98.3 F Pulse Rate 122 H 132 H 101 H Respiratory Rate 16 29 H 22 H Blood Pressure 107/72 Pulse Oximetry 99 98 98 Oxygen Delivery BiPAP BiPAP Oxygen Flow Rate
[2023-08-23] MEDS: ALBUTEROL SULFATE NEB 2.5 MG/3 ML INH 1.25 MG INHALATION (10:16)
[2023-08-23] MEDS: IPRATROPIUM BR 0.02% INH SOLN 0.5 MG/2.5 ML VIAL INHALATION ×3 (10:16→20:06)
[2023-08-23 10:50] LABS: Hematocrit 43.4 % (42.0-52.0); Hemoglobin 13.9 g/dL (14.0-18.0); Mean Corpuscular Hemoglobin 30.5 pg (26-34); Mean Corpuscular Volume 95.2 fl (80-100); Mean Platelet Volume 12.5 fl (7.4-10.4); Platelet Count Result 110 k/mm3 (150-375); Red Blood Count 4.56 M/mm3 (4.6-6.20); Red Cell Distribution Width 13.9 % (11.5-14.5); White Blood Count 22.9 K/mm3 (4.5-10.0)
[2023-08-23 11:03] LABS: Alanine Aminotransferase 172 U/L (6-50); Albumin Level 3.5 g/dL (3.5-5.1); Alkaline Phosphatase 110 U/L (38-126); Anion Gap 15 mmol/L (8-16); Aspartate Amino Transferase 212 U/L (17-59); Bilirubin,Total 6.2 mg/dL (0.2-1.3); Blood Urea Nitrogen 26 mg/dL (9-20); Calcium 8.6 mg/dL (8.4-10.2); Carbon Dioxide 21 mmol/L (22-30); Chloride 106 mmol/L (98-107); Estimated CRCL calculation 63 ml/min; Estimated Glomerular Filt Rate > 60; Glucose 112 mg/dL (65-110); Potassium 3.7 mmol/L (3.4-5.0); Sodium 142 mmol/L (137-145)
[2023-08-23] MEDS: POTASSIUM CHLORIDE INJ 40 MEQ in SODIUM CHLORIDE 0.9% IV 500 ML 130 MEQ IVPB (11:30)
[2023-08-23 12:17] LABS: Band Neutrophils Percent 23 % (0-6); Lymphocytes Absolute Manual 1.14 K/mm3 (1.1-4.5); Metamyelocytes Percent 6 %; Monocytes Absolute Manual 0.91 K/mm3 (0.1-0.90); Monocytes Percent Manual 4 % (3-9); Neutrophils Absolute Manual 19.46 K/mm3 (1.3-6.7); Neutrophils Percent Manual 62 % (46-73); Schistocytes None Seen (NORMAL); Total Cells Counted 100
[2023-08-23] MEDS: SODIUM CHLORIDE 0.9% IV 500 ML 999 ML IV CONT (12:25)
[2023-08-23] MEDS: LORazepam INJ (*CRX) 2 MG/ML VIAL 0.5 MG IV PUSH (13:12)
[2023-08-23] MEDS: HEPARIN SODIUM 5,000 UNITS/ML VIAL 5000 UNITS SUB-Q ×2 (13:13→23:12)
--- NOTE | 2023-08-23 13:22 | WPDGICN ---
Assessment and Plan Assessment and plan (1) Elevated liver enzymes: Code(s): R74.8 - Abnormal levels of other serum enzymes Status: Acute Assessment and Plan: Elevated LFTs likely related to cholecystitis. Cannot exclude common bile duct obstruction. Recommend MRCP. Surgery following. Patient may need cholecystectomy. Currently on broad-spectrum antibiotics. continued surgical follow-up advised. Hepatitis serologies will be obtained . will continue follow her LFTs in the interim. (2) Acute cholecystitis: Code(s): K81.0 - Acute cholecystitis Status: Acute Assessment and Plan: CT scan imaging suggest acute cholecystitis. No obvious gallstones on initial imaging. Distended gallbladder noted with changes suspicious for cholecystitis. (3) Obesity, morbid, BMI 40.0-49.9: Code(s): E66.01 - Morbid (severe) obesity due to excess calories Status: Acute (4) COPD (chronic obstructive pulmonary disease): Code(s): J44.9 - Chronic obstructive pulmonary disease, unspecified Status: Chronic GI Consult Note Consult date/time: 08/23/23 13:22 Reason for consult: Elevated LFTs. HPI: Nash Jara is a 67 year old male I am asked to see because of abdominal pain and elevated LFTs. Patient presented to the emergency room last evening with abdominal pain. CT scan revealed distended gallbladder. Common bile duct of 9mm. Patient's white count also noted to be elevated. For this reason I have been consulted. Patient was approached by surgery with attempts to consider CT-guided cholecystostomy tube and MRCP however patient also had a headache and insisted on treatment of his migraine headaches 1st. This morning patient is seen on the request of the surgical service. Patient was sleeping comfortable with CPAP mask. His headache is controlled. He has received pain medications and states his pain is much less intense. Patient denies a fever. Patient denies any exposure to hepatitis. He denies any knowledge of gallbladder disease prior to this. Review of Systems Review of Systems: Review of systems noncontributory. [facility] Past Medical History Medical History COPD (chronic obstructive pulmonary disease) History of colon cancer S/p partial colectomy with no chemotherapy Hyperlipidemia Hypertension Osteoarthritis Rheumatoid arthritis Scrotal abscess s/p I&D at [facility] June 29, 2023 Surgical History Surgical History History of incision and drainage I&D scrotal abscess 06/29/23 with subsequent wound vac therapy and wound care History of partial colectomy laparoscopic Social History Social History Smoking status: Never smoker Alcohol intake: never Substance use: never Substance use type: does not use Lack of Transportation: No Lack of Food: Never True Current Housing: I Have Housing Concerned About Future Housing: No Difficulty Paying Gas/Electric Bills: No Difficulty Paying for Meds: No Currently Unemployed: No Education: Don't Know Difficulty w/ Childcare or Family Care: No Spiritual care concerns: No Meds Home Medications and Allergies Home Medications Medication Instructions Recorded Confirmed Type atorvastatin 40 mg tablet 40 mg PO DAILY 08/22/23 08/22/23 History fluticasone fur. 200 mcg-umeclid 1 inh inhalation DAILY 08/22/23 08/22/23 History 62.5 mcg-vilant 25 mcg inhalat.powder (Trelegy Ellipta) gabapentin 600 mg tablet 600 mg PO TID 08/22/23 08/22/23 History meloxicam 15 mg tablet 15 mg PO DAILY 08/22/23 08/22/23 History morphine 15 mg tablet,extended 15 mg PO QID PRN chronic back pain 08/22/23 08/22/23 History release pantoprazole 40 mg tablet,delayed 40 mg PO DAILY 08/22/23 08/22/23 History release pota
--- NOTE | 2023-08-23 13:50 | PM.PNGS ---
Progress Note: A&P Assessment and Plan (1) Abnormal findings on diagnostic imaging of gallbladder: Code(s): R93.2 - Abnormal findings on diagnostic imaging of liver and biliary tract Status: Acute Assessment and Plan: RUQ US and CT showed a distended gallbladder with gallstones. No other evidence of cholecystitis, no sonographic Hopson's sign. Initially, we had ordered percutaneous cholecystostomy tube placement, which I discussed with the Radiologist today. He feels that it appears he more likely that he has an obstructing common duct stone rather than acute cholecystitis, considering his significant hyperbilirubinemia and the lack of other findings of cholecystitis on imaging. Patient is unable to have the MRCP at this time since he cannot tolerate coming off the BiPAP. The Radiologist recommended holding off on the cholecystostomy tube and ordering a HIDA scan, which I ordered. GI consulted for possible ERCP. We could still proceed with cholecystostomy tube placement if the HIDA scan shows acute cholecystitis. I discussed the case with Dr. Bernal who will discuss further with GI today. (2) Sepsis: Code(s): A41.9 - Sepsis, unspecified organism Status: Acute Assessment and Plan: Secondary to biliary source - ascending cholangitis versus cholecystitis versus combination. See plan above. WBC trending up and lactic acid up to 4.9 early this morning. Continue broad-spectrum IV antibiotics and IV fluids. Blood cx preliminary showing growth of gram negative bacilli. Dr. Bernal will discuss case with GI. (3) Elevated liver enzymes: Code(s): R74.8 - Abnormal levels of other serum enzymes Status: Acute Assessment and Plan: Elevated LFTs with significant hyperbilirubinemia and common bile duct dilatation on ultrasound, concerning for choledocholithiasis. GI consulted. Trend labs. Plan I have discussed the patient's case and plan of care with Dr. Bernal. Subjective Subjective Date/Time Seen: 08/23/23 13:50 Patient reports: pain is less and fever (103.8F tmax last night around 1am) Interval history: Patient seen in IMU. Overnight, he had a rapid response called with patient in respiratory distress. He was on 5 liters oxygen and has since been put on BiPAP. His lactic acid went up to 4.9 and his WBC trending up to 22k today. His LFTs are still elevated with his bilirubin trending up to 6.2 this afternoon and his direct bilirubin elevated at 3.1. He is unable to have the MRCP as he is still requiring BiPAP and did not tolerate coming off for even 20 minutes per nursing. He is unable to tolerate lying flat. GI consulted. He is now seen this afternoon without family at the bedside. He is tired-appearing but comfortable and easy to wake up. He is oriented and answers questions appropriately. He is still having some epigastric abdominal pain, but this has improved since I saw him in the ER yesterday. No nausea. No other specific complaints at this time. Review of Systems Review of Systems: All systems reviewed & are unremarkable except as noted in HPI and below Exam Const: General: ill appearing and tired appearing Nutritional Appearance: obese Cardio: Rate: tachycardic Rhythm: regular rhythm GI: Inspection: non-distended and obesity GI Palp: Yes Soft to palpation, Yes Tenderness to palpation present (GI) (epigastric and RUQ), Yes Guarding due to palpation present (GI) (RUQ) and No Rebound tenderness present Auscultation: normal bowel sounds Extrem: General: no edema Psych: Mental Status: mental status grossly normal Insight: Good insight present (Psych) Objective Data Vital Signs Vital Signs: Vital Signs - 24 hr 08/22/23 16:10 08/22/23 17:03 08/22/23 21:46 Temperature 100.5 F H Pulse Rate 78 78 91 Respiratory Rate 19 22 H Blood Pressure 142/116 H Pulse Oximetry 94 94 94 Oxygen Delivery Room Air Room Air Oxygen Flow Rate Fraction of Inspired Oxygen 08/22/23 23:16 1
[2023-08-23] MEDS: ALBUTEROL SULFATE NEB 2.5 MG/3 ML INH INHALATION ×2 (13:52→20:06)
--- NOTE | 2023-08-23 15:06 | PC.NURSE ---
Pt reports feeling like he has to push his urine out. Hudson irrigated. Pt winces with irrigation. Bladder scan shows 30 ml. Urine light brown and concentrated. Denies any history of bladder or urine issues. Scrotum swollen. Pt had wound vac removed approximately [address] Hatch made aware. New orders noted for UA.
[2023-08-23] MEDS: ALPRAZolam (*CRX) 0.5 MG TABLET PO (15:28)
--- NOTE | 2023-08-23 17:07 | WPDGIPROGNO ---
Progress Note: A&P Assessment and Plan (1) Acute cholecystitis: Code(s): K81.0 - Acute cholecystitis Status: Acute Assessment and Plan: Patient with acute cholecystitis and gallstones evident on imaging. Common bile duct may be obstructed with elevated bilirubin. Now status to gallbladder drainage tube. White count remains very high 22,000 today. Cannot exclude common bile duct gallstone obstruction. I discussed this with surgery. Patient remains at high risk for surgery but also for an ERCP. He may benefit from transfer to a tertiary care center for this procedure. Continue antibiotic supportive care for now. (2) Elevated liver enzymes: Code(s): R74.8 - Abnormal levels of other serum enzymes Status: Acute Assessment and Plan: Elevated transaminases and bilirubin. Concern over cholecystitis but also possible cholangitis. MRCP would be helpful but cannot be off BiPAP long enough to have this procedure done. Will continue supportive care and follow for now. (3) Obesity, morbid, BMI 40.0-49.9: Code(s): E66.01 - Morbid (severe) obesity due to excess calories Status: Acute (4) Acute respiratory failure with hypoxemia: Code(s): J96.01 - Acute respiratory failure with hypoxia Status: Acute Assessment and Plan: Patient remains on BiPAP. Does not do well without it. Subjective Date/time seen: 08/23/23 17:07 Interval history: Follow-up visit this afternoon. Patient remains on BiPAP mask. She is currently sedated. Had external cholecystotomy tube placed this afternoon. Not very responsive likely sedated for procedure. Review of Systems Review of Systems: Review of systems noncontributory. Exam Narrative: On physical exam patient is remains on BiPAP mask. Lungs reveal a few rhonchi. Abdomen is soft no evidence for tenderness. Gallbladder drain in place with dark bile draining. Objective Data Vital Signs Vital Signs: Vital Signs - 24 hr 08/22/23 21:46 08/22/23 23:16 08/23/23 00:01 Temperature 100.5 F H 100.9 F H 99.0 F Pulse Rate 91 136 H 148 H Respiratory Rate 22 H 40 H 34 H Blood Pressure 142/116 H 193/73 H 190/90 H Pulse Oximetry 94 95 94 Oxygen Delivery Oxygen Flow Rate Fraction of Inspired Oxygen 08/23/23 00:56 08/22/23 23:00 08/23/23 01:15 Temperature 103.2 F H 103.8 F H Pulse Rate 140 H 130 H Respiratory Rate 36 H 30 H Blood Pressure 134/70 107/58 L Pulse Oximetry 95 96 Oxygen Delivery Nasal Cannula Oxygen Flow Rate 4 Fraction of Inspired Oxygen 08/23/23 00:00 08/23/23 00:00 08/23/23 02:00 Temperature Pulse Rate 148 H 148 H 127 H Respiratory Rate 36 H Blood Pressure Pulse Oximetry 95 Oxygen Delivery BiPAP Oxygen Flow Rate Fraction of Inspired Oxygen 50 08/23/23 02:26 08/23/23 03:01 08/23/23 04:00 Temperature 99.9 F H 99.9 F H Pulse Rate 124 H Respiratory Rate Blood Pressure Pulse Oximetry Oxygen Delivery Oxygen Flow Rate Fraction of Inspired Oxygen 08/23/23 04:00 08/23/23 04:00 08/23/23 00:01 Temperature 98.3 F Pulse Rate 124 H 122 H 132 H Respiratory Rate 28 H 16 29 H Blood Pressure 107/72 Pulse Oximetry 98 99 98 Oxygen Delivery BiPAP BiPAP Oxygen Flow Rate Fraction of Inspired Oxygen 50 08/23/23 04:49 08/23/23 06:00 08/23/23 08:24 Temperature Pulse Rate 101 H 110 H 112 H Respiratory Rate 22 H 23 H Blood Pressure Pulse Oximetry 98 99 Oxygen Delivery BiPAP BiPAP Oxygen Flow Rate Fraction of Inspired Oxygen 08/23/23 08:20 08/23/23 08:26 08/23/23 08:00 Temperature 97.7 F Pulse Rate 121 H Respiratory Rate 30 H Blood Pressure 116/59 L Pulse Oximetry 99 97 99 Oxygen Delivery BiPAP BiPAP Oxygen Flow Rate Fraction of Inspired Oxygen 50 35 08/23/23 10:18 08/23/23 12:00 08/23/23 11:20 Temperature 98.4 F Pulse Rate 102 H 102 H 106 H Respiratory Rate 22 H 27 H 26 H
[2023-08-23 17:22] LABS: Appearance Urine Cloudy (Clear); Bacteria Urine None Seen /hpf; Bilirubin Urine 2+ (Negative); Blood Urine 3+ (Negative); Color Urine Dark Yellow (Yellow); Glucose Urine UA Negative (Negative); Ketones Urine Negative (Negative); Leukocyte Esterase Ur Trace LEU/UL (NEGATIVE); Need Manual Microscopic Reviewed; Nitrate Urine Negative (Negative); Non Pathogenic Casts 0-2; Protein Urine 2+ mg/dL (Negative); RBC Urine >100 /hpf (0-2); Squamous Epithelial Cell Urine Occasional /hpf (Few); WBC Urine 0-5 /hpf (0-3)
[2023-08-23 17:23] LABS: Add Urine Microscopic? YES; Specific Grav Ur 1.067 (1.001-1.035)
[2023-08-23] MEDS: RIZATRIPTAN BENZOATE 10 MG ODT PO ×2 (18:47→20:57)
[2023-08-23] MEDS: HYDROmorphone HCL INJ (*CRX) 1 MG/ML SYR IV PUSH (18:47)
[2023-08-23] MEDS: HYDROmorphone HCL INJ (*CRX) 1 MG/ML SYR 0.5 MG IV PUSH (23:09)
[2023-08-24] VITALS (24 sets, daily range): BP systolic 146–181; BP diastolic 87–108; PULSE 86–130; RESP 18–28; TEMP 36–36.8; O2SAT 95–99
[2023-08-24] MEDS: PIPERACILLN/TAZ 3.375GM/NS50ML 3.375 GM/50 ML BAG IVPB ×5 (00:07→23:15)
[2023-08-24] MEDS: ALBUTEROL SULFATE NEB 2.5 MG/3 ML INH INHALATION ×4 (00:41→20:58)
[2023-08-24] MEDS: IPRATROPIUM BR 0.02% INH SOLN 0.5 MG/2.5 ML VIAL INHALATION ×4 (00:41→20:58)
[2023-08-24 04:53] LABS: Hematocrit 40.2 % (42.0-52.0); Hemoglobin 12.9 g/dL (14.0-18.0); Immature Platelet Fraction Pct 8.1 % (0.9-11.2); Mean Corpuscular HGB Conc 32.1 g/dl (32-36); Mean Corpuscular Hemoglobin 30.6 pg (26-34); Mean Corpuscular Volume 95.3 fl (80-100); Mean Platelet Volume 12.3 fl (7.4-10.4); Platelet Count Result 94 k/mm3 (150-375); Red Blood Count 4.22 M/mm3 (4.6-6.20); Red Cell Distribution Width 14.1 % (11.5-14.5); White Blood Count 14.6 K/mm3 (4.5-10.0)
[2023-08-24 05:00] LABS: Lactic Acid Reflex 1.8 mmol/L (0.7-2.0)
[2023-08-24 05:04] LABS: Alanine Aminotransferase 150 U/L (6-50); Albumin Level 3.4 g/dL (3.5-5.1); Alkaline Phosphatase 87 U/L (38-126); Anion Gap 9 mmol/L (8-16); Aspartate Amino Transferase 146 U/L (17-59); Bilirubin,Total 5.1 mg/dL (0.2-1.3); Blood Urea Nitrogen 23 mg/dL (9-20); Calcium 8.5 mg/dL (8.4-10.2); Carbon Dioxide 22 mmol/L (22-30); Chloride 109 mmol/L (98-107); Estimated CRCL calculation 75 ml/min; Estimated Glomerular Filt Rate > 60; Glucose 99 mg/dL (65-110); Lipase 58 U/L (23-300); Potassium 3.6 mmol/L (3.4-5.0); Sodium 140 mmol/L (137-145)
[2023-08-24] MEDS: HEPARIN SODIUM 5,000 UNITS/ML VIAL 5000 UNITS SUB-Q ×3 (05:16→21:42)
[2023-08-24 06:35] LABS: Band Neutrophils Percent 17 % (0-6); Lymphocytes Absolute Manual 0.87 K/mm3 (1.1-4.5); Lymphocytes Percent Manual 6 % (18-44); Monocytes Absolute Manual 0.73 K/mm3 (0.1-0.90); Monocytes Percent Manual 5 % (3-9); Neutrophils Absolute Manual 12.84 K/mm3 (1.3-6.7); Neutrophils Percent Manual 71 % (46-73); Total Cells Counted 100
[2023-08-24 06:36] LABS: Eosinophils Absolute Manual 0.14 K/mm3 (0.02-0.5); Eosinophils Percent Manual 1 % (0-4)
[2023-08-24 06:37] LABS: Large Platelets Present; Poikilocytosis 1+ (NORMAL); Tear Drop Cells 1+ (NORMAL)
[2023-08-24 06:38] LABS: Burr Cells 2+ (NORMAL); Schistocytes None Seen (NORMAL)
--- NOTE | 2023-08-24 09:42 | PM.IMPN ---
Progress Note: A&P Assessment and Plan (1) Acute cholecystitis: Code(s): K81.0 - Acute cholecystitis Status: Acute (2) Elevated liver enzymes: Code(s): R74.8 - Abnormal levels of other serum enzymes Status: Acute (3) Sepsis: Code(s): A41.9 - Sepsis, unspecified organism Status: Acute (4) Acute respiratory failure with hypoxemia: Code(s): J96.01 - Acute respiratory failure with hypoxia Status: Acute (5) COPD (chronic obstructive pulmonary disease): Code(s): J44.9 - Chronic obstructive pulmonary disease, unspecified Status: Chronic Plan Patient has sudden-onset abdominal pain CT reveals distended gallbladder Elevated liver enzymes, no gallstone is identified on CT scan RUQ US and CT showed a distended gallbladder with gallstones. No other evidence of cholecystitis ?acute cholecystitis and gallstones evident on imaging.? Common bile duct may be obstructed with elevated bilirubin.? Now status to gallbladder drainage tube.? Optimize pain management Anti emetic p.r.n. Keep patient p.o. Consult general surgeon and GI for evaluation and treatment Sepsis Patient has tachycardia tachypnea, patient is immunocompromised, patient on methotrexate Receive Zosyn in the ED Continue Zosyn IV Four blood culture urinalysis Fluid resuscitation Hypertension Continue home oral medication given p.o., start hydralazine IV as needed with parameters Acute respiratory failure Possible due to COPD exacerbation and obesity hypoventilation syndrome CT of chest rule out PE Start O2 therapy to keep pulse ox above 92 Start DuoNeb scheduled albuterol nebulizer as needed Consult zoology technical officer for evaluation treatment Dysuria Hudson catheter placed Consult urologist for evaluation treatment Anxiety Start Xanax p.o. as needed Subjective Date/time seen: 08/24/23 09:42 Interval history: Patient feels better regarding the pain, denies nausea vomiting. Patient has a trouble with urination, Hudson catheter was placed and removed today. Patient was afebrile, blood pressure stable Exam Narrative: GENERAL: Pleasant, in no acute distress. Well-nourished. - EYES: EOMI. Anicteric. - HENT: Moist mucous membranes. - LUNGS: Clear to auscultation bilaterally, no wheezing, rhonchi, or rales. - CARDIOVASCULAR: Regular rate and rhythm. No murmur. No JVD. - ABDOMEN: Soft, right upper quadrant tender of and non-distended. No palpable masses. - EXTREMITIES: No edema. Peripheral pulses 2+. Non-tender. - NEUROLOGIC: No focal neurological deficits. CN II-XII grossly intact. - PSYCHIATRIC: Awake, Alert and oriented x 3. Appropriate mood and affect. - SKIN: No rashes or lesions. Warm. - LYMPH: No cervical lymphadenopathy. Objective Data Vital Signs Vital Signs: Vital Signs - 24 hr 08/23/23 10:18 08/23/23 12:00 08/23/23 11:20 Temperature 98.4 F Pulse Rate 102 H 102 H 106 H Respiratory Rate 22 H 27 H 26 H Blood Pressure 136/91 H Pulse Oximetry 98 97 Oxygen Delivery BiPAP Oxygen Flow Rate Fraction of Inspired Oxygen 08/23/23 13:53 08/23/23 13:54 08/23/23 15:07 Temperature Pulse Rate 103 H 104 H 104 H Respiratory Rate 25 H 25 H 28 H Blood Pressure Pulse Oximetry 96 96 Oxygen Delivery BiPAP BiPAP Oxygen Flow Rate Fraction of Inspired Oxygen 08/23/23 10:00 08/23/23 12:00 08/23/23 14:00 Temperature Pulse Rate 106 H 104 H 107 H Respiratory Rate Blood Pressure Pulse Oximetry Oxygen Delivery Oxygen Flow Rate Fraction of Inspired Oxygen 08/23/23 16:00 08/23/23 18:00 08/23/23 12:00 Temperature Pulse Rate 104 H 118 H Respiratory Rate Blood Pressure Pulse Oximetry 98 Oxygen Delivery BiPAP Oxygen Flow Rate Fraction of Inspired Oxygen 35 08/23/23 16:00 08/23/23 16:00 08/23/23 19:33 Temperature 98.4 F 98.5 F Pulse Rate 102 H 112 H Respiratory Rate 27 H 18 Blood Pr
[2023-08-24] MEDS: LABETALOL HCL INJ 100 MG/20 ML VIAL 10 MG IV PUSH (10:30)
[2023-08-24] MEDS: TELMISARTAN 40 MG TABLET PO (10:30)
[2023-08-24] MEDS: FAMOTIDINE 20 MG/2 ML VIAL IV PUSH ×2 (10:30→22:36)
[2023-08-24] MEDS: ALPRAZolam (*CRX) 0.5 MG TABLET PO ×2 (10:42→18:13)
--- NOTE | 2023-08-24 10:54 | PM.CNPUL ---
Assessment and Plan Assessment and plan (1) Acute respiratory failure with hypoxemia: Code(s): J96.01 - Acute respiratory failure with hypoxia Status: Acute Assessment and Plan: He is requiring O2 at 4 L a minute, saturation 98%. He has a respiratory alkalosis secondary to sepsis. Does not appear to have aspiration pneumonia or community acquired pneumonia,no infiltrates on CXR or CTA. O2 can be weaned as he improves. (2) COPD (chronic obstructive pulmonary disease): Qualifiers: COPD type: unspecified COPD Qualified Code(s): J44.9 - Chronic obstructive pulmonary disease, unspecified Code(s): J44.9 - Chronic obstructive pulmonary disease, unspecified Status: Chronic Assessment and Plan: Long standing, uses Trelegy once a day and prn albuterol a few time a week, does not get COPD exacerbations. Change treatment here to budesonide in nebulizer, stop ipratropium with thick secretions and urinary retention (3) Atelectasis: Code(s): J98.11 - Atelectasis Status: Acute Assessment and Plan: seen on chest CTA, not much; should improve with Cornet valve and bronchodilators Plan Add Cornet valve to help him clear airway secretions, improve atelectasis Continue bronchodilator; he is not able to use inhaler due to decreased mentation, Will continue nebulized albuterol; stop ipratropium because he has problems expectorating and he had urinary retention on admission. Ipratropium is anticholinergic, worsens urine retention. Start nebulized budesonide for COPD. Check urine antigen for pneumococcus and Legionella. He needs to have more respiratory stability before any additional procedures, ERCP. He is a big lima, may end up intubated. History of Present Illness History of Present Illness Consult date: 08/24/23 Requesting physician: Mirlande Hatch MD Chief complaint: COPD, acute respiratory failure Narrative: patient seen August 24 at 20:42 NEW: Nash Jara is a 67-year-old man with COPD, RA; admitted with abdominal pain, had MRCP today for acute cholecystitis with sepsis, has a drain in place, needs to have ERCP. His Zelda and daughter Yasmine are at the bedside, provide history. Patient is confused and not able to give a history. He uses Trelegy at home, and albuterol a few times a week. He does not get frequent respiratory infections, maybe once a year. He has not had a recent exacerbation of COPD, and has never been on a ventilator. Today, he started to cough with thick secretions, white. ABG on 08/22/2023 shows pH 7.521, pCO2 24.9, PO2 84, HC03 19.9 saturation 97.4% on 4 L. this is consistent with sepsis. He does have an increased A-a gradient. His blood cultures Aug 22 - Klebsiella; WBC was 16.9 then 24k, today lower 14.9 K He is on pip-tazo IV; vancomycin was stopped. He had 07/09/23 a hydrocelectomy, later fell, had to have a wound vac until last Tuesday 3. He was getting more active, was going out to eat with family. His general activity level is limited by back pain, not shortness of breath, however he tries to stay active. He has not had increased shortness of breath or coughing until he developed the abdominal pain with cholecystitis and sepsis. DATA * 08/23/23 CTA- IMPRESSION: 1. No pulmonary embolus identified. 2. Mild dependent atelectasis. 3. Cardiomegaly. * 08/23 : CXR Clear lungs. Review of Systems Review of Systems: no leg swelling no chest pain All systems reviewed & are unremarkable except as noted in HPI and below PMFSH Past Medical History Medical History COPD (chronic obstructive pulmonary disease) History of colon cancer S/p partial colectomy with no chemotherapy Hyperl
[2023-08-24] MEDS: RIZATRIPTAN BENZOATE 10 MG ODT PO ×2 (12:17→21:42)
--- NOTE | 2023-08-24 13:11 | WPDURCON ---
Assessment and Plan Assessment and plan (1) BPH (benign prostatic hyperplasia): Code(s): N40.0 - Benign prostatic hyperplasia without lower urinary tract symptoms Status: Acute Assessment and Plan: Start Tamsulosin and Finasteride. Pt. wanted his verdin removed, I agreed to remove it and try a voiding trial since his PVR was 350cc on insertion. However, I didn't guarantee he wouldn't have incomplete emptying since meds hadn't been started. Will bladder scan after first void to determine if he can remain without a verdin. (2) Retention of urine: Code(s): R33.9 - Retention of urine, unspecified Status: Acute Urology Consult Note HPI Date Seen: 08/24/23 Time Seen: 10:00 Requesting Physician: Mirlande Hatch MD Primary Care Provider: Sarabjit Whitman, Consult Narrative Reason for consult: Retention/Scrotal Wound/Hydrocele Narrative: Nash Jara is a 67 year old male who presented to the ER on 08/22/23 with diffuse abdominal pain and nausea and was found to have acute cholecystitis. He had a verdin catheter placed as well for acute retention with 350cc upon insertion. He states he hasn't been on any medications for BPH in the past but does struggle with nocturia, frequency, urgency and a slow stream at home. He see's a urologist at [facility] who did a hydrocelectomy on him recently, but he fell and his incision dehisced causing him to have infection and debridement with a wound vac placed. The wound vac was removed recently, but he has a small area that is still not healed, however it is not bothersome to him. He is very bothered by his catheter and is having spasms and pain despite the urine being clear and draining to gravity. He is on Zosyn, WBC is 14.6, creatinine is 1.00, urinalysis isn't suggestive of a UTI, but no cutlure was sent. He is afebrile. Review of Systems Cardiovascular: Cardiovascular: Denies chest pain Respiratory: Respiratory: Reports no additional respiratory complaints Gastrointestinal: Gastrointestinal: Reports abdominal pain, Reports nausea and Denies vomiting Genitourinary: Genitourinary: Denies hematuria, Reports oliguria, Denies flank pain, Reports nocturia, Reports urinary frequency, Reports urinary hesitancy and Reports urinary urgency [facility] Past Medical History Medical History COPD (chronic obstructive pulmonary disease) History of colon cancer S/p partial colectomy with no chemotherapy Hyperlipidemia Hypertension Osteoarthritis Rheumatoid arthritis Scrotal abscess s/p I&D at [facility] June 29, 2023 Surgical History Surgical History History of incision and drainage I&D scrotal abscess 06/29/23 with subsequent wound vac therapy and wound care History of partial colectomy laparoscopic Social History Social History Smoking status: Never smoker Alcohol intake: never Substance use: never Substance use type: does not use Lack of Transportation: No Lack of Food: Never True Current Housing: I Have Housing Concerned About Future Housing: No Difficulty Paying Gas/Electric Bills: No Difficulty Paying for Meds: No Currently Unemployed: No Education: Don't Know Difficulty w/ Childcare or Family Care: No Spiritual care concerns: No Meds Home Medications and Allergies Home Medications Medication Instructions Recorded Confirmed Type atorvastatin 40 mg tablet 40 mg PO DAILY 08/22/23 08/22/23 History fluticasone fur. 200 mcg-umeclid 1 inh inhalation DAILY 08/22/23 08/22/23 History 62.5 mcg-vilant 25 mcg inhalat.powder (Trelegy Ellipta) gabapentin 600 mg tablet 600 mg PO TID 08/22/23 08/22/23 History meloxicam 15 mg tablet 15 mg PO DAILY 08/22/23 08/22/23 History morphine 15 mg tablet,extended 15 mg PO QID PRN chronic back pain
--- NOTE | 2023-08-24 13:49 | PM.PNGS ---
Progress Note: A&P Assessment and Plan (1) Sepsis: Code(s): A41.9 - Sepsis, unspecified organism Status: Acute Assessment and Plan: Biliary source, likely cholangitis vs less likely cholecystitis. S/p cholecystostomy tube placement, bile cx pending. WBC count trending down and lactic acid normalized. LFTs down today. Preliminary blood cx growing Klebsiella pneumoniae. Continue broad-spectrum IV antibiotics and IV fluids. (2) Cholelithiasis with choledocholithiasis: Code(s): K80.70 - Calculus of gallbladder and bile duct without cholecystitis without obstruction Status: Acute Assessment and Plan: MRCP showed gallstones in the dependent aspect of the gallbladder with minimal pericholecystic fluid but no wall thickening or pericholecystic inflammatory stranding. Also showed a 5 mm distal common duct stone. He is improving s/p gallbladder decompression with cholecystostomy tube placement yesterday. GI following for possible ERCP. Plan would be to have the cholecystostomy tube in place for a few weeks before eventually following up with the patient regarding interval cholecystectomy as an outpatient once medically optimized. (3) Cholangitis: Code(s): K83.09 - Other cholangitis Status: Acute Assessment and Plan: Continue IV antibiotics. (4) Elevated liver enzymes: Code(s): R74.8 - Abnormal levels of other serum enzymes Status: Acute Assessment and Plan: Improved some today following gallbladder decompression. Total bilirubin still 5.1. MRCP showed 5 mm distal common bile duct stone. GI following for possible ERCP. Plan I have discussed the patient's case and plan of care with Dr. Bernal. Subjective Subjective Date/Time Seen: 08/24/23 13:49 Patient reports: no new complaints, feels better, pain is less and afebrile (since 08/23 around 3:00 am) Interval history: Patient seen today in IMU. Overall he is feeling better than yesterday. He is more alert. He is currently off BiPAP on high flow nasal cannula. He still has some mild right-sided abdominal pain, but improved. No nausea. He is thirsty. Perc cholecystostomy tube placed yesterday. No other complaints at this time. Exam Const: General: comfortable and ill appearing Orientation/consciousness: patient oriented x3 GI: Inspection: obesity and other (RUQ cholecystostomy tube with bilious drainage) GI Palp: Yes Soft to palpation, Yes Tenderness to palpation present (GI) (RUQ and RLQ), No Guarding due to palpation present (GI) and No Rebound tenderness present Auscultation: normal bowel sounds Objective Data Vital Signs Vital Signs: Vital Signs - 24 hr 08/23/23 13:53 08/23/23 13:54 08/23/23 15:07 Temperature Pulse Rate 103 H 104 H 104 H Respiratory Rate 25 H 25 H 28 H Blood Pressure Pulse Oximetry 96 96 Oxygen Delivery BiPAP BiPAP Oxygen Flow Rate Fraction of Inspired Oxygen 08/23/23 14:00 08/23/23 16:00 08/23/23 18:00 Temperature Pulse Rate 107 H 104 H 118 H Respiratory Rate Blood Pressure Pulse Oximetry Oxygen Delivery Oxygen Flow Rate Fraction of Inspired Oxygen 08/23/23 16:00 08/23/23 16:00 08/23/23 19:33 Temperature 98.4 F 98.5 F Pulse Rate 102 H 112 H Respiratory Rate 27 H 18 Blood Pressure 136/91 H 150/92 H Pulse Oximetry 98 98 96 Oxygen Delivery BiPAP Oxygen Flow Rate Fraction of Inspired Oxygen 35 08/23/23 20:07 08/23/23 20:00 08/23/23 20:00 Temperature Pulse Rate 110 H Respiratory Rate 21 H Blood Pressure Pulse Oximetry 98 96 Oxygen Delivery Nasal Cannula Nasal Cannula Oxygen Flow Rate 2 2 Fraction of Inspired Oxygen 08/23/23 22:14 08/23/23 20:00 08/23/23 22:00 Temperature Pulse Rate 103 H 112 H 100 Respiratory Rate 25 H Blood Pressure Pulse Oximetry 97 Oxygen Delivery BiPAP Oxygen Flow Rate Fraction of Inspired Oxygen 08/24/23 00:00 08/24/23 00:00 08/23/23 20:15 T
--- NOTE | 2023-08-24 14:46 | WPDGIPROGNO ---
Progress Note: A&P Assessment and Plan (1) Cholelithiasis with choledocholithiasis: Code(s): K80.70 - Calculus of gallbladder and bile duct without cholecystitis without obstruction Status: Acute Assessment and Plan: MRCP able to be accomplished today shows the patient does have gallstones with common bile duct gallstone measuring 5mm. I discussed with the patient that we need to proceed with the ERCP when his respiratory status is stable. Patient voices his intention to leave the hospital in return when he is breathing better and stronger. Currently his WBC count has diminished currently 14.6 this morning. I will keep him NPO for possible ERCP tomorrow but patient at this point somewhat unwilling to pursue invasive testing. Apparently he is somewhat frustrated with the nighttime staff on the floor. ERCP will be considered when his respiratory status is stabilized. (2) Cholangitis: Code(s): K83.09 - Other cholangitis Status: Acute Assessment and Plan: Patient with apparent cholangitis on presentation. Appears to be improving after gallbladder drainage tube placed. Will continue broad-spectrum antibiotics at this time. Anticipate ERCP prior to all to make cholecystectomy. (3) Obesity, morbid, BMI 40.0-49.9: Code(s): E66.01 - Morbid (severe) obesity due to excess calories Status: Acute (4) COPD (chronic obstructive pulmonary disease): Code(s): J44.9 - Chronic obstructive pulmonary disease, unspecified Status: Chronic Assessment and Plan: Patient with tenuous respiratory status. Somewhat improved today. He is no longer on continuous BiPAP mask. Subjective Date/time seen: 08/24/23 14:46 Interval history: Patient feeling much better today. Sitting upright in bed. No longer continuous use of BiPAP mask. Denies significant abdominal pain. Apparently became very frustrated last evening. He remains afebrile. Review of Systems Review of Systems: Review of systems noncontributory. Exam Narrative: Physical exam reveals patient be alert. He is afebrile. HEENT exam reveals some scleral icterus. Heart without murmur. Abdomen is obese. Bowel sounds are present soft no localized tenderness. Gallbladder drainage tube in place with dark bile recovered. Objective Data Vital Signs Vital Signs: Vital Signs - 24 hr 08/23/23 15:07 08/23/23 16:00 08/23/23 18:00 Temperature Pulse Rate 104 H 104 H 118 H Respiratory Rate 28 H Blood Pressure Pulse Oximetry 96 Oxygen Delivery BiPAP Oxygen Flow Rate Fraction of Inspired Oxygen 08/23/23 16:00 08/23/23 16:00 08/23/23 19:33 Temperature 98.4 F 98.5 F Pulse Rate 102 H 112 H Respiratory Rate 27 H 18 Blood Pressure 136/91 H 150/92 H Pulse Oximetry 98 98 96 Oxygen Delivery BiPAP Oxygen Flow Rate Fraction of Inspired Oxygen 35 08/23/23 20:07 08/23/23 20:00 08/23/23 20:00 Temperature Pulse Rate 110 H Respiratory Rate 21 H Blood Pressure Pulse Oximetry 98 96 Oxygen Delivery Nasal Cannula Nasal Cannula Oxygen Flow Rate 2 2 Fraction of Inspired Oxygen 08/23/23 22:14 08/23/23 20:00 08/23/23 22:00 Temperature Pulse Rate 103 H 112 H 100 Respiratory Rate 25 H Blood Pressure Pulse Oximetry 97 Oxygen Delivery BiPAP Oxygen Flow Rate Fraction of Inspired Oxygen 08/24/23 00:00 08/24/23 00:00 08/23/23 20:15 Temperature 98.1 F Pulse Rate 105 H 104 H Respiratory Rate 28 H 22 H Blood Pressure 146/91 H Pulse Oximetry 97 96 Oxygen Delivery BiPAP Oxygen Flow Rate Fraction of Inspired Oxygen 35 08/24/23 00:42 08/24/23 00:43 08/24/23 00:00 Temperature Pulse Rate 106 H 106 H 109 H Respiratory Rate 22 H 24 H Blood Pressure Pulse Oximetry 97 Oxygen Delivery BiPAP Oxygen Flow Rate Fraction of Inspired Oxygen 08/24/23 02:00 08/24/23 04:00 08/24/23 04:00 Temperature 98 F Pulse
[2023-08-24] MEDS: TAMSULOSIN HCL 0.4 MG CAPSULE PO (16:02)
[2023-08-24] MEDS: FINASTERIDE 5 MG TABLET PO (16:03)
--- NOTE | 2023-08-24 17:39 | PC.NURSE ---
Pt has had 4 large amounts of incontinent urinary episodes. No concern for retention since verdin catheter was removed.
[2023-08-24] MEDS: GABAPENTIN 300 MG CAPSULE 600 MG PO (18:11)
[2023-08-24] MEDS: hydrALAZINE HCL 20 MG/ML VIAL 10 MG IV PUSH (18:11)
[2023-08-24] MEDS: SODIUM CHLORIDE 0.9% IV 1,000 ML 125 ML IV CONT ×2 (18:12→23:14)
[2023-08-24] MEDS: LORazepam INJ (*CRX) 2 MG/ML VIAL 1 MG IM (21:42)
[2023-08-25] VITALS (19 sets, daily range): BP systolic 161–200; BP diastolic 91–110; PULSE 85–104; RESP 18–30; TEMP 36.2–36.9; O2SAT 96–100
[2023-08-25] MEDS: HEPARIN SODIUM 5,000 UNITS/ML VIAL 5000 UNITS SUB-Q ×2 (06:00→14:44)
[2023-08-25] MEDS: hydrALAZINE HCL 20 MG/ML VIAL 10 MG IV PUSH ×2 (06:01→16:49)
[2023-08-25] MEDS: PIPERACILLN/TAZ 3.375GM/NS50ML 3.375 GM/50 ML BAG IVPB ×2 (06:01→12:05)
[2023-08-25 07:54] LABS: Basophils Absolute Auto 0.1 K/mm3 (0.0-0.1); Basophils Percent Auto 0.5 % (0.2-1.2); Eosinophils Absolute Auto 0.2 K/mm3 (0-0.3); Eosinophils Percent Auto 1.4 % (0-4.4); Hematocrit 40.9 % (42.0-52.0); Hemoglobin 13.4 g/dL (14.0-18.0); Immature Granulocyte Absolute 0.07 K/mm3 (0.00-0.031); Immature Granulocyte Percent A 0.6 % (0-0.5); Lymphocytes Absolute Auto 1.25 K/mm3 (0.9-3.2); Lymphocytes Percent Auto 10.2 % (18.3-44.2); Mean Corpuscular HGB Conc 32.8 g/dl (32-36); Mean Corpuscular Hemoglobin 30.5 pg (26-34); Mean Platelet Volume 12.2 fl (7.4-10.4); Monocytes Absolute Auto 0.7 K/mm3 (0.1-0.6); Monocytes Percent Auto 5.9 % (2.6-8.5); Neutrophils Percent Auto 81.4 % (45.5-73.1); Platelet Count Result 112 k/mm3 (150-375); Red Cell Distribution Width 13.8 % (11.5-14.5); White Blood Count 12.3 K/mm3 (4.5-10.0)
[2023-08-25 08:04] LABS: Alanine Aminotransferase 106 U/L (6-50); Albumin Level 3.4 g/dL (3.5-5.1); Alkaline Phosphatase 88 U/L (38-126); Anion Gap 9 mmol/L (8-16); Aspartate Amino Transferase 63 U/L (17-59); Bilirubin,Total 2.4 mg/dL (0.2-1.3); Blood Urea Nitrogen 18 mg/dL (9-20); Carbon Dioxide 22 mmol/L (22-30); Chloride 111 mmol/L (98-107); Estimated CRCL calculation 83 ml/min; Estimated Glomerular Filt Rate > 60; Glucose 93 mg/dL (65-110); Potassium 3.5 mmol/L (3.4-5.0); Sodium 142 mmol/L (137-145)
[2023-08-25] MEDS: FAMOTIDINE 20 MG/2 ML VIAL IV PUSH ×2 (08:32→19:59)
[2023-08-25] MEDS: TAMSULOSIN HCL 0.4 MG CAPSULE PO (08:32)
[2023-08-25] MEDS: FINASTERIDE 5 MG TABLET PO (08:33)
[2023-08-25] MEDS: RIZATRIPTAN BENZOATE 10 MG ODT PO ×3 (08:33→17:08)
[2023-08-25] MEDS: ALPRAZolam (*CRX) 0.5 MG TABLET PO ×2 (08:33→19:59)
[2023-08-25] MEDS: TELMISARTAN 40 MG TABLET PO (08:33)
[2023-08-25] MEDS: GABAPENTIN 300 MG CAPSULE 600 MG PO ×3 (08:33→16:49)
[2023-08-25] MEDS: PANTOPRAZOLE 40 MG TABLET PO (08:33)
--- NOTE | 2023-08-25 08:42 | PM.IMPN ---
Progress Note: A&P Assessment and Plan (1) Acute cholecystitis: Code(s): K81.0 - Acute cholecystitis Status: Acute (2) Elevated liver enzymes: Code(s): R74.8 - Abnormal levels of other serum enzymes Status: Acute (3) Sepsis: Code(s): A41.9 - Sepsis, unspecified organism Status: Acute (4) Acute respiratory failure with hypoxemia: Code(s): J96.01 - Acute respiratory failure with hypoxia Status: Acute (5) COPD (chronic obstructive pulmonary disease): Code(s): J44.9 - Chronic obstructive pulmonary disease, unspecified Status: Chronic Plan Patient has sudden-onset abdominal pain CT reveals distended gallbladder Elevated liver enzymes, no gallstone is identified on CT scan RUQ US and CT showed a distended gallbladder with gallstones. No other evidence of cholecystitis ?acute cholecystitis and gallstones evident on imaging.? Common bile duct may be obstructed with elevated bilirubin.? Now status to gallbladder drainage tube.? Optimize pain management Anti emetic p.r.n. Keep patient p.o. Consult general surgeon and GI for evaluation and treatment MRCP Cholelithiasis including a 5 mm stone at the distalmost common bile duct. The prior intra-axial hepatic biliary ductal dilation has resolved likely due to the interval placement of a percutaneous cholecystostomy tube which at the fundus of the gallbladder which aside from a minimal amount of pericholecystic fluid appears normal. Indeterminate 1 cm T1 hypointense T2 hyperintense lesion with subtle associated sclerosis on prior CT at the L1 vertebral body. There is no provided history of known prior malignancy but would consider correlation with bone scan and PSA levels. Outpatient work is discussed with patient Sepsis Patient has tachycardia tachypnea, patient is immunocompromised, patient on methotrexate Receive Zosyn in the ED Continue Zosyn IV Four blood culture urinalysis Fluid resuscitation Hypertension Continue home oral medication given p.o., start hydralazine IV as needed with parameters Acute respiratory failure Possible due to COPD exacerbation and obesity hypoventilation syndrome CT of chest rule out PE Start O2 therapy to keep pulse ox above 92 Started DuoNeb scheduled albuterol nebulizer as needed Consult travel occupational therapist for evaluation treatment Appreciate travel occupational therapist consultation, travel occupational therapist does not considers patient has COPD exacerbation, changed to budesonide, discontinue Atrovent because of the thick secretion and urinary retention Dysuria Hudson catheter placed Consult urologist for evaluation treatment Anxiety Start Xanax p.o. as needed Subjective Date/time seen: 08/25/23 08:42 Interval history: Patient feels better regarding the pain, denies nausea vomiting, dysuria. Patient was afebrile, blood pressure stable, leukocytosis is improving, afebrile over the night Exam Narrative: GENERAL: Pleasant, in no acute distress. Well-nourished. - EYES: EOMI. Anicteric. - HENT: Moist mucous membranes. - LUNGS: Clear to auscultation bilaterally, no wheezing, rhonchi, or rales. - CARDIOVASCULAR: Regular rate and rhythm. No murmur. No JVD. - ABDOMEN: Soft, right upper quadrant tender of and non-distended. No palpable masses. - EXTREMITIES: No edema. Peripheral pulses 2+. Non-tender. - NEUROLOGIC: No focal neurological deficits. CN II-XII grossly intact. - PSYCHIATRIC: Awake, Alert and oriented x 3. Appropriate mood and affect. - SKIN: No rashes or lesions. Warm. - LYMPH: No cervical lymphadenopathy. Objective Data Vital Signs Vital Signs: Vital Signs - 24 hr 08/24/23 10:30 08/24/23 12:00 08/24/23 13:10 Temperature 96.8 F L Pulse Rate 106 H 90 97 Respiratory Rate 22 H 18 Blood Pressure 170/108 H Pulse Oximetry 98 Oxygen Delivery Oxygen Flow Rate Fraction of Inspired Oxygen 08/24/23 13:20 08/24/23 16:00 08/24/23 19:28 Te
--- NOTE | 2023-08-25 08:47 | PM.PNGS ---
Progress Note: A&P Assessment and Plan (1) Cholangitis: Code(s): K83.09 - Other cholangitis Status: Acute Assessment and Plan: improving, cont abx, will need ERCP for CBD stone, GI and anesthesia would like transfer to tertiary center for procedure given pts risk factors and severity of process (2) Cholelithiasis with choledocholithiasis: Code(s): K80.70 - Calculus of gallbladder and bile duct without cholecystitis without obstruction Status: Acute Assessment and Plan: see above, cont francisco drain, abx (3) Sepsis: Code(s): A41.9 - Sepsis, unspecified organism Status: Acute Assessment and Plan: see above Subjective Subjective Date/Time Seen: 08/25/23 08:47 Interval history: pt still somewhat lethargic but answering questions appropriately, reports abd pain better Review of Systems Review of Systems: All systems reviewed & are unremarkable except as noted in HPI and below Exam Const: General: cooperative, ill appearing, lethargic and obese Resp: Auscultation: diminished lung sounds Cardio: Rate: regular rate Rhythm: regular rhythm GI: Inspection: normal to inspection, distended and obesity GI Palp: Yes abdominal tenderness, Yes Soft to palpation, Yes Tenderness to palpation present (GI), No Guarding due to palpation present (GI) and No Rigid due to palpation Other: francisco tube - bilious drainage Objective Data Vital Signs Vital Signs: Vital Signs - 24 hr 08/24/23 10:30 08/24/23 12:00 08/24/23 13:10 Temperature 36.0 C L Pulse Rate 106 H 90 97 Respiratory Rate 22 H 18 Blood Pressure 170/108 H Pulse Oximetry 98 Oxygen Delivery Oxygen Flow Rate Fraction of Inspired Oxygen 08/24/23 13:20 08/24/23 16:00 08/24/23 19:28 Temperature 36.1 C L 36.1 C L Pulse Rate 99 87 95 Respiratory Rate 18 22 H 18 Blood Pressure 177/105 H 155/87 H Pulse Oximetry 98 98 Oxygen Delivery Oxygen Flow Rate Fraction of Inspired Oxygen 08/24/23 12:00 08/24/23 16:00 08/24/23 10:00 Temperature Pulse Rate 113 H Respiratory Rate Blood Pressure Pulse Oximetry 98 97 Oxygen Delivery Nasal Cannula Nasal Cannula Oxygen Flow Rate 2 2 Fraction of Inspired Oxygen 08/24/23 12:00 08/24/23 14:00 08/24/23 16:00 Temperature Pulse Rate 88 86 86 Respiratory Rate Blood Pressure Pulse Oximetry Oxygen Delivery Oxygen Flow Rate Fraction of Inspired Oxygen 08/24/23 18:00 08/24/23 20:58 08/24/23 21:02 Temperature Pulse Rate 94 91 91 Respiratory Rate 18 18 Blood Pressure Pulse Oximetry 98 Oxygen Delivery Nasal Cannula Oxygen Flow Rate 4 Fraction of Inspired Oxygen 08/24/23 23:14 08/24/23 20:00 08/24/23 20:00 Temperature 36.8 C Pulse Rate 105 H 96 Respiratory Rate 20 Blood Pressure 167/98 H Pulse Oximetry 96 98 Oxygen Delivery Nasal Cannula Oxygen Flow Rate 4 Fraction of Inspired Oxygen 08/24/23 22:00 08/25/23 00:00 08/25/23 00:00 Temperature Pulse Rate 103 H 104 H Respiratory Rate Blood Pressure Pulse Oximetry 96 Oxygen Delivery Nasal Cannula Oxygen Flow Rate 4 Fraction of Inspired Oxygen 08/25/23 02:00 08/25/23 04:00 08/25/23 04:00 Temperature 36.9 C Pulse Rate 87 87 93 Respiratory Rate 20 Blood Pressure 180/106 H Pulse Oximetry 97 Oxygen Delivery Oxygen Flow Rate Fraction of Inspired Oxygen 08/25/23 04:00 08/25/23 06:00 08/25/23 08:00 Temperature 36.9 C Pulse Rate 90 90 Respiratory Rate 20 Blood Pressure 161/91 H Pulse Oximetry 97 99 Oxygen Delivery BiPAP Oxygen Flow Rate Fraction of Inspired Oxygen 35 Intake/Output Intake/Output: Intake & Output 08/22/23 08/23/23 08/24/23 08/25/23 23:59 23:59 23:59 23:59 Intake Total 1668 1200 2310 829 Output Total 1100 1400 130 Balance 1668 100 910 699 Meds/Results Medications: Active Medications Generic Name Dose Rou
[2023-08-25] MEDS: ALBUTEROL SULFATE NEB 2.5 MG/3 ML INH INHALATION ×2 (08:57→13:19)
[2023-08-25] MEDS: BUDESONIDE RESPULE NEB 0.5 MG/2 ML AMP INHALATION (08:59)
[2023-08-25] MEDS: SODIUM CHLORIDE 0.9% IV 1,000 ML 125 ML IV CONT ×2 (09:08→16:59)
--- NOTE | 2023-08-25 12:46 | WPDGIPROGNO ---
Progress Note: A&P Assessment and Plan (1) Cholelithiasis with choledocholithiasis: Code(s): K80.70 - Calculus of gallbladder and bile duct without cholecystitis without obstruction Status: Acute Assessment and Plan: Patient with common bile duct gallstones noted on MRCP. Patient will need any ERCP to remove these. Discussed case with both surgery and anesthesia. Patient remains high risk. It is been advised that he would be best served by being treated at tertiary care center for follow-up ERCP. I my understanding this is to be arranged by the surgical service. (2) Cholangitis: Code(s): K83.09 - Other cholangitis Status: Acute Assessment and Plan: Continue antibiotics for apparent cholangitis. WBC count now 12.3 today this is decreased some. LFTs with total bilirubin now 2.4. This decrease some as well with decompression tube in place. (3) Obesity, morbid, BMI 40.0-49.9: Code(s): E66.01 - Morbid (severe) obesity due to excess calories Status: Acute (4) COPD (chronic obstructive pulmonary disease): Code(s): J44.9 - Chronic obstructive pulmonary disease, unspecified Status: Chronic Assessment and Plan: Patient with significant respiratory difficulties. He has used intermittent BiPAP for respiratory support. Remains at high risk. Anesthesia is advised transfer to tertiary care center for more invasive procedures as required. Subjective Date/time seen: 08/25/23 12:46 Interval history: Patient a little bit more alert today. Somewhat conversant. Still not really awaken not totally with it. Patient with no fever. Still significant drainage from the gallbladder tube. Review of Systems Review of Systems: Review of systems noncontributory. Exam Narrative: Physical exam reveals the patient is intermittently continued use BiPAP mask. HEENT exam with mild icterus. Lungs revealed bilateral rhonchi. Heart without murmur. Abdomen is obese. Gallbladder tube in the right side of the abdomen draining bile. No organomegaly evident. Objective Data Vital Signs Vital Signs: Vital Signs - 24 hr 08/24/23 13:10 08/24/23 13:20 08/24/23 16:00 Temperature 96.9 F L Pulse Rate 97 99 87 Respiratory Rate 18 18 22 H Blood Pressure 177/105 H Pulse Oximetry 98 Oxygen Delivery Oxygen Flow Rate Fraction of Inspired Oxygen 08/24/23 19:28 08/24/23 16:00 08/24/23 14:00 Temperature 97 F L Pulse Rate 95 86 Respiratory Rate 18 Blood Pressure 155/87 H Pulse Oximetry 98 97 Oxygen Delivery Nasal Cannula Oxygen Flow Rate 2 Fraction of Inspired Oxygen 08/24/23 16:00 08/24/23 18:00 08/24/23 20:58 Temperature Pulse Rate 86 94 91 Respiratory Rate 18 Blood Pressure Pulse Oximetry Oxygen Delivery Oxygen Flow Rate Fraction of Inspired Oxygen 08/24/23 21:02 08/24/23 23:14 08/24/23 20:00 Temperature 98.3 F Pulse Rate 91 105 H Respiratory Rate 18 20 Blood Pressure 167/98 H Pulse Oximetry 98 96 98 Oxygen Delivery Nasal Cannula Nasal Cannula Oxygen Flow Rate 4 4 Fraction of Inspired Oxygen 08/24/23 20:00 08/24/23 22:00 08/25/23 00:00 Temperature Pulse Rate 96 103 H 104 H Respiratory Rate Blood Pressure Pulse Oximetry Oxygen Delivery Oxygen Flow Rate Fraction of Inspired Oxygen 08/25/23 00:00 08/25/23 02:00 08/25/23 04:00 Temperature 98.5 F Pulse Rate 87 87 Respiratory Rate 20 Blood Pressure 180/106 H Pulse Oximetry 96 97 Oxygen Delivery Nasal Cannula Oxygen Flow Rate 4 Fraction of Inspired Oxygen 08/25/23 04:00 08/25/23 04:00 08/25/23 06:00 Temperature Pulse Rate 93 90 Respiratory Rate Blood Pressure Pulse Oximetry 97 Oxygen Delivery BiPAP Oxygen Flow Rate Fraction of Inspired Oxygen 35 08/25/23 08:00 08/25/23 09:00 08/25/23 09:11 Temperature 98.4 F Pulse Rate 90 88 89 Respiratory R
--- NOTE | 2023-08-25 14:09 | PM.PNPUL ---
Subjective Date/time seen: 08/25/23 14:09 Interval history: Pateint is being transferred for acute cholecystits, was not seen. Objective Data Vital Signs Vital Signs: Vital Signs - 24 hr 08/24/23 16:00 08/24/23 19:28 08/24/23 16:00 Temperature 36.1 C L 36.1 C L Pulse Rate 87 95 Respiratory Rate 22 H 18 Blood Pressure 177/105 H 155/87 H Pulse Oximetry 98 98 97 Oxygen Delivery Nasal Cannula Oxygen Flow Rate 2 Fraction of Inspired Oxygen 08/24/23 16:00 08/24/23 18:00 08/24/23 20:58 Temperature Pulse Rate 86 94 91 Respiratory Rate 18 Blood Pressure Pulse Oximetry Oxygen Delivery Oxygen Flow Rate Fraction of Inspired Oxygen 08/24/23 21:02 08/24/23 23:14 08/24/23 20:00 Temperature 36.8 C Pulse Rate 91 105 H Respiratory Rate 18 20 Blood Pressure 167/98 H Pulse Oximetry 98 96 98 Oxygen Delivery Nasal Cannula Nasal Cannula Oxygen Flow Rate 4 4 Fraction of Inspired Oxygen 08/24/23 20:00 08/24/23 22:00 08/25/23 00:00 Temperature Pulse Rate 96 103 H 104 H Respiratory Rate Blood Pressure Pulse Oximetry Oxygen Delivery Oxygen Flow Rate Fraction of Inspired Oxygen 08/25/23 00:00 08/25/23 02:00 08/25/23 04:00 Temperature 36.9 C Pulse Rate 87 87 Respiratory Rate 20 Blood Pressure 180/106 H Pulse Oximetry 96 97 Oxygen Delivery Nasal Cannula Oxygen Flow Rate 4 Fraction of Inspired Oxygen 08/25/23 04:00 08/25/23 04:00 08/25/23 06:00 Temperature Pulse Rate 93 90 Respiratory Rate Blood Pressure Pulse Oximetry 97 Oxygen Delivery BiPAP Oxygen Flow Rate Fraction of Inspired Oxygen 35 08/25/23 08:00 08/25/23 09:00 08/25/23 09:11 Temperature 36.9 C Pulse Rate 90 88 89 Respiratory Rate 20 30 H 25 H Blood Pressure 161/91 H Pulse Oximetry 99 98 Oxygen Delivery BiPAP Oxygen Flow Rate Fraction of Inspired Oxygen 08/25/23 09:12 08/25/23 08:00 08/25/23 08:00 Temperature Pulse Rate 89 94 Respiratory Rate 25 H Blood Pressure Pulse Oximetry 98 98 Oxygen Delivery BiPAP Nasal Cannula Oxygen Flow Rate 3 Fraction of Inspired Oxygen 30 08/25/23 10:00 08/25/23 12:00 08/25/23 12:00 Temperature Pulse Rate 93 97 Respiratory Rate Blood Pressure Pulse Oximetry 98 Oxygen Delivery Nasal Cannula Oxygen Flow Rate 3 Fraction of Inspired Oxygen 08/25/23 13:19 08/25/23 13:28 Temperature Pulse Rate 85 93 Respiratory Rate 18 22 H Blood Pressure Pulse Oximetry Oxygen Delivery Oxygen Flow Rate Fraction of Inspired Oxygen Intake/Output Intake/Output: Intake & Output 08/22/23 08/23/23 08/24/23 08/25/23 23:59 23:59 23:59 23:59 Intake Total 1668 1200 2310 1050 Output Total 1100 1400 130 Balance 1668 100 910 920 Meds/Results Medications: Active Medications Generic Name Dose Route Start Last Admin Trade Name Freq PRN Reason Stop Dose Admin Acetaminophen 650 mg 08/23/23 01:04 08/23/23 01:15 Acetaminophen 650 Mg Suppository RECTAL 650 mg Q6H PRN Administration Mild Pain (1-3) or Fever Albuterol 2.5 mg 08/23/23 14:00 08/25/23 13:19 Albuterol Sulfate Neb 2.5 Mg/3 Ml Inh INHALATION 2.5 mg Q6HRT ESCOBAR Administration Albuterol 2.5 mg 08/23/23 09:59 Albuterol Sulfate Neb 2.5 Mg/3 Ml Inh INHALATION Q4HRT PRN Shortness Of Breath Alprazolam 0.5 mg 08/23/23 15:10 08/25/23 08:33 Alprazolam (*Crx) 0.5 Mg Tablet PO 0.5 mg TID PRN Administration Anxiety Budesonide 0.5 mg 08/24/23 21:35 08/25/23 08:59 Budesonide Respule Neb 0.5 Mg/2 Ml Amp INHALATION 0.5 mg Q12HRT ESCOBAR Administration Famotidine 20 mg 08/22/23 21:00 08/25/23 08:32 Famotidine 20 Mg/2 Ml Vial IV PUSH 20 mg Q12HR ESCOBAR Administration Finasteride 5 mg 08/24/23 13:25 08/25/23 08:33 Finasteride 5 Mg Tablet PO 5 mg QAM ESCOBAR Administration Fluticasone/Umeclidinium/Vilanterol 1 puff
--- NOTE | 2023-08-25 16:05 | PC.NURSE ---
Kamla Pereira Rn notified of BP elevated.
[2023-08-25] MEDS: AMPICILLIN SULB 3 GM/NS 100 ML 3 GM/100 ML VIAL IVPB (16:49)
--- NOTE | 2023-08-25 23:25 | PC.NURSE ---
nurse spoke with Isis () made aware of patient ETA time to [facility].
--- NOTE | 2023-08-26 08:09 | PM.TDS ---
Transfer Discharge Sum: Prov Provider Date of admission: 08/23/23 09:27 Primary care physician: Sarabjit Whitman, Admitting clinician: Mirlande Hatch MD Consults: 08/22/23 Consult to Physician Routine Comment: Consulting Provider: Marcella Bernal Reason for consultation: distended gallbladder Has provider been notified: Yes Consult to Physician Routine Comment: Spoke to 08.22.23 @ [phone] ([facility]) Consulting Provider: Kd Gomez manager call center/MD group to consult: GI Reason for consultation: Transaminitis with hyperbilirubinemia, dilated CBD Has provider been notified: Yes Wound/ET Consult Routine Reason for Consult:: Patient had scrotal wound vac removed Tuesday. Does daily dressing changes at home with wound cleanser. Orders needed for cleanser and continued wound care while inpatient. 08/23/23 Consult to Physician Routine Comment: spoke with office @ [phone] (,) Consulting Provider: Maury Doran Reason for consultation: Painful pressure with verdin catheter in place Has provider been notified: Yes 08/24/23 Care Coordination Consult Routine Comment: Resume PT/OT/RN Reason for Consult:: Home Health Consult to Physician Routine Comment: Spoke with Dr Hi @ [phone] ([facility]) Consulting Provider: Mell Hi manager call center/ group to consult: On-call range rider Reason for consultation: COPD, acute respiratory failure Has provider been notified: Yes DS: Admitting Diagnosis Discharge Date 08/26/23 Admitting Diagnosis (1) Acute cholecystitis: ?Code(s): K81.0 - Acute cholecystitis ?Status:?Acute (2) Elevated liver enzymes: ?Code(s): R74.8 - Abnormal levels of other serum enzymes ?Status:?Acute (3) Sepsis: ?Code(s): A41.9 - Sepsis, unspecified organism ?Status:?Acute (4) Acute respiratory failure with hypoxemia: ?Code(s): J96.01 - Acute respiratory failure with hypoxia ?Status:?Acute (5) COPD (chronic obstructive pulmonary disease): ?Code(s): J44.9 - Chronic obstructive pulmonary disease, unspecified ?Status:?Chronic DS: Discharge Diagnosis Discharge Diagnosis (1) Acute cholecystitis: Code(s): K81.0 - Acute cholecystitis Status: Acute (2) Elevated liver enzymes: Code(s): R74.8 - Abnormal levels of other serum enzymes Status: Acute (3) Sepsis: Code(s): A41.9 - Sepsis, unspecified organism Status: Acute (4) Acute respiratory failure with hypoxemia: Code(s): J96.01 - Acute respiratory failure with hypoxia Status: Acute (5) COPD (chronic obstructive pulmonary disease): Qualifiers: COPD type: unspecified COPD Qualified Code(s): J44.9 - Chronic obstructive pulmonary disease, unspecified Code(s): J44.9 - Chronic obstructive pulmonary disease, unspecified Status: Chronic Plan Transfer Discharge Sum: Med Medications Active and Home Medications: Home Medications atorvastatin 40 mg tablet 40 mg PO DAILY 08/22/23 [History Confirmed 08/22/23] fluticasone fur. 200 mcg-umeclid 62.5 mcg-vilant 25 mcg inhalat.powder (Trelegy Ellipta) 1 inh inhalation DAILY 08/22/23 [History Confirmed 08/22/23] gabapentin 600 mg tablet 600 mg PO TID 08/22/23 [History Confirmed 08/22/23] meloxicam 15 mg tablet 15 mg PO DAILY 08/22/23 [History Confirmed 08/22/23] morphine 15 mg tablet,extended release 15 mg PO QID PRN chronic back pain 08/22/23 [History Confirmed 08/22/23] pantoprazole 40 mg tablet,delayed release 40 mg PO DAILY 08/22/23 [History Confirmed 08/22/23] potassium chloride 10 mEq tablet,extended release 10 meq PO TID 08/22/23 [History Confirmed 08/22/23] rizatriptan 10 mg tablet 10 mg PO BID PRN Migraine Headache 08/22/23 [History Confirmed 08/22/23] telmisartan 40 mg tablet 40 mg PO DAILY 08/22/23 [History Confirmed 08/22/23] Transfer Discharge Sum: Hosp Hospital Course Hospital course: 67 years old gentleman with h
== END 2023-08-26 00:27 | disposition short-term general hospital (02) | DRG 871 ==
LOC: ANHED 07:41 → ANH3MEDSUR 15:24 → ANHIMU 08-23 00:48
PROVIDERS: Internal Medicine; Internal Medicine Gastroenterology; Nurse Practitioner Family; Radiology Diagnostic Radiology; Surgery; Admitting Provider Hospitalist; Emergency Provider Emergency Medicine; PCP Internal Medicine; Visit Provider Student in an Organized Health Care Education/Training Program
DX: A41.9 Sepsis, unspecified organism (principal); J96.01 Acute respiratory failure with hypoxia; K80.63 Calculus of gallbladder and bile duct with acute cholecystitis with obstruction; E66.2 Morbid (severe) obesity with alveolar hypoventilation; Z68.41 Body mass index [BMI] 40.0-44.9, adult; D84.9 Immunodeficiency, unspecified; J98.11 Atelectasis; J44.9 Chronic obstructive pulmonary disease, unspecified; F41.9 Anxiety disorder, unspecified; R30.0 Dysuria; B96.1 Klebsiella pneumoniae [K. pneumoniae] as the cause of diseases classified elsewhere; N40.1 Benign prostatic hyperplasia with lower urinary tract symptoms; R33.8 Other retention of urine; M06.9 Rheumatoid arthritis, unspecified; E78.5 Hyperlipidemia, unspecified; M19.90 Unspecified osteoarthritis, unspecified site; I10 Essential (primary) hypertension; Z85.038 Personal history of other malignant neoplasm of large intestine; Z87.891 Personal history of nicotine dependence
CPT/HCPCS: 36415; 36600; 47490; 71045; 71275; 74177; 74181; 76376; 76705; 80053; 80074; 81001; 82248; 82805; 82948; 83605; 83690; 83735; 84484; 85025; 85027; 85055; 85610; 85730; 87040; 87070; 87075; 87077; 87102; 87186; 87205; 87206; 93005; 94002; 94003; 94640; 96365; 96366; 96372; 96375; 96376; 99285; A9270; C1729; G0378; J0295; J0360; J1170; J1200; J1630; J1644; J2060; J2270; J2543; J3370; J3480; J7030; J7040; Q9967